=== PATIENT | male | born 1960 | race Caucasian/White ===

== ENCOUNTER 2019-01-09 00:28 | Inpatient (IN) | payer MEDICAID, OTHER | END 2019-01-10 18:45 | disposition home or self-care (01) | LOC: ER 00:28 → TELE 00:29 → TELE-WESTW 11:34 | DX: N17.0 Acute kidney failure with tubular necrosis (principal); I50.43 Acute on chronic combined systolic (congestive) and diastolic (congestive) heart failure; J18.1 Lobar pneumonia, unspecified organism; E11.21 Type 2 diabetes mellitus with diabetic nephropathy; I25.10 Atherosclerotic heart disease of native coronary artery without angina pectoris; R07.9 Chest pain, unspecified; E11.42 Type 2 diabetes mellitus with diabetic polyneuropathy ==

== ENCOUNTER 2019-04-17 17:54 | Inpatient (IN) | payer MEDICAID, OTHER ==
[~2019-04-17] VITALS: Ht 177.8 cm; Wt 93.5 kg
[~2019-04-17 17:54] MED LIST: ASPI-404 PO; CLOP75TA28 PO
[2019-04-17 21:14] LABS: Basophils # (auto) 0.1 uL; Basophils % (auto) 1.2 % (0.0-2.0); Eosinophils # (auto) 0.1 uL; Eosinophils % (auto) 3.2 % (0.0-7.0); Hematocrit 38.3 % (41.0-53.0); Hemoglobin 12.7 g/dL (13.5-17.5); Lymphocytes # (auto) 0.7 uL; Lymphocytes % (auto) 16.3 % (10.0-50.0); Mean Corpuscular Hemoglobin 28.3 pg (28.0-32.0); Mean Corpuscular Hgb Conc. 33.1 g/dL (32.0-36.0); Mean Corpuscular Volume 85.6 fL (80.0-100.0); Monocytes # (auto) 0.4 uL; Monocytes % (auto) 10.8 % (0.0-12.0); Neutrophils # (auto) 2.9 uL; Neutrophils % (auto) 68.5 % (37.0-80.0); Nucleated Red Blood Cells % 0.1 %; Platelet Count (auto) 201 10^3/uL (140-450); Red Blood Cells 4.47 10^6/uL (4.5-5.90); Red Cell Distribution Width 16.3 % (11.8-14.3); White Blood Cell 4.2 10^3/uL (4.4-10.8)
[2019-04-17 21:25] LABS: INR 1.2 (0.9-1.15); Partial Thromboplastin Time 27.7 sec (23.64-32.05)
[2019-04-17 21:26] LABS: Amylase 29 U/L (25-115); Lipase 65 U/L (73-393)
[2019-04-17 21:28] LABS: Albumin 3.1 g/dL (3.4-5.0); BUN/Creatinine Ratio 11.7; Calcium 8.2 mg/dL (8.5-10.1); Potassium 4.3 mmol/L (3.5-5.1)
[2019-04-17 21:31] LABS: Total Protein 7.6 g/dL (6.4-8.2)
[2019-04-17] MEDS ORDERED: ONDANSETRON HCL 4 MG/2 ML VIAL IV ONE (22:30)
[2019-04-17] MEDS ORDERED: MORPHINE SULFATE 4 MG/ML SYR/VIAL IV ONE (22:30)
[2019-04-18] VITALS (8 sets, daily range): BP systolic 95–122; BP diastolic 59–84
[2019-04-18] MEDS ORDERED: FUROSEMIDE 20 MG/2 ML VIAL IV ONE (01:15)
[2019-04-18] MEDS ORDERED: AZITHROMYCIN 500MG/ 250ML 250 ML IV ONE (02:15)
[2019-04-18] MEDS ORDERED: cefTRIAXone 1GM/50ML D5W 50 ML IV ONE (02:15)
[2019-04-18] MEDS ORDERED: TEMAZEPAM 15 MG CAP PO PRN (02:45)
[2019-04-18] MEDS ORDERED: DEXTROSE (50%) 50ML SYRG IV PRN (02:45)
[2019-04-18] MEDS ORDERED: ACETAMINOPHEN 325 MG TAB PO PRN (02:45)
[2019-04-18] MEDS ORDERED: MORPHINE SULF INJ 2 MG/ML SYRINGE 1ML IV PRN (02:45)
[2019-04-18] MEDS ORDERED: NITROGLYCERIN 0.4 MG SL TAB SL PRN (02:45)
[2019-04-18] MEDS ORDERED: ALBUTEROL SULF 2.5 MG/0.5ML(0.5%) NEB SOLN NEB PRN (02:45)
--- NOTE | 2019-04-18 04:03 | NUR ---
Telemetry admit from ER [facility] admitted to Telemetry unit after NO SBAR was received. Patient oriented to KEISHA HEALY, RN primary RN, unit, room, bed, and unit policies regarding patient care and visiting hours. Patient now on continuous telemetry monitoring, tele box # 31 and telemetry reading on arrival to unit is sinus rhythm 91bpm. Patient placed on bedside oxygen 3L/min via nasal cannula, weighed by bedscale and encouraged to call if they need something. All questions and concerns addressed, patient verbalized understanding. Call light is within reach, side rails up x2, bed is in lowest position, bed alarm is on. Patient is A/O x4, skin is overall intact with closed scabs to the right and left lower extremities, 20 g IV to the LFA.
[2019-04-18] MEDS: HYDROcodone-ACET 5/325MG TAB PO PRN (04:23)
--- NOTE | 2019-04-18 04:30 | NUR ---
HOME MEDICATIONS Patient does not remember the names of the home medications he takes at home and states he can have a list of the home medications brought in today.
[2019-04-18] MEDS ORDERED: FUROSEMIDE 20 MG/2 ML VIAL IV SCH (06:00)
[2019-04-18] MEDS: ACCU-CHEK COMFORT CURVE STRIP VI SCH ×3 (06:14→17:51)
[2019-04-18] MEDS: InsuLIN REG 1unit/0.01ml Soln (100units/ml) SC SCH ×3 (06:14→18:10)
--- NOTE | 2019-04-18 07:00 | NUR ---
PT. ASSESSED FOR PRN. MN. TX., NO RESP. DISTRESS NOTED. PT. IS AWAKE AND ALERT, APPROPRIATE TO QUESTIONS. BS. ARE CLEAR AND DIMINISHED BILATERALLY. HR=44,RR=18,OC79=544% ON 3LPM NC. PT. DENIES ANY SOB. AT THIS TIME. PRN. TX. NOT INDICATED, NO TX. GIVEN. PT. INSTRUCTED TO CALL IF NEEDED.
[2019-04-18] MEDS ORDERED: ASPirin 81 mg TAB PO SCH (10:00)
[2019-04-18] MEDS: CARVEDILOL 3.125 MG TAB PO SCH ×2 (10:00→13:00)
[2019-04-18 10:12] LABS: Urine Bacteria NONE SEEN /hpf (None Seen); Urine Blood Negative /uL (Negative); Urine Hyaline Cast MANY /lpf (0 - 2); Urine Specific Gravity 1.013 (1.001-1.035); Urine WBC 1 /hpf (0 - 3)
[2019-04-18] MEDS: CLOPIDOGREL BISULFATE 75 MG TAB PO SCH (10:26)
--- NOTE | 2019-04-18 10:26 | NUR ---
Dr. Avila logging contractor at the bedside, orders received.
[2019-04-18] MEDS: FUROSEMIDE 20 MG/2 ML VIAL IV SCH ×2 (11:10→17:49)
--- NOTE | 2019-04-18 15:29 | NUR ---
Dr. Cameron shadowgraph operator at the bedside, orders received.
--- NOTE | 2019-04-18 16:46 | NUR ---
Faxed disclosure of all cardiology reports requested by Dr. Cameron to [facility] Medical Records section fax # [phone]. Waiting for reply.
--- NOTE | 2019-04-18 19:20 | NUR ---
Opening Shift Note Assumed care of patient, awake and alert x4. No S/S of distress/SOB or pain. Call light is within reach, side rails up x2. bed is in lowest position. Instructed on POC and to call for assist PRN, will continue to monitor for changes Q1hr and PRN.
--- NOTE | 2019-04-18 19:46 | NUR ---
RT NOTE: PT ASSESSED FOR PRN MED NEB TX, P[T DENIES SOB AT THIS TIME. PT ON 3LPM NC SPO2 99% HR 56, RR 18. NO DISTRESS NOTED AT THIS TIME. PT NOTIFIED IF SOB OCCURS TO HAVE RT PAGED.
[2019-04-18] MEDS: ATORVASTATIN 20 MG TAB PO SCH (22:13)
[2019-04-18] MEDS: CARVEDILOL 12.5 MG TAB PO SCH (22:15)
[2019-04-18] MEDS: AZITHROMYCIN 500MG/ 250ML 250 ML IV SCH (23:38)
[2019-04-19] MEDS: InsuLIN REG 1unit/0.01ml Soln (100units/ml) SC SCH ×5 (00:02→18:02)
[2019-04-19] MEDS: ACCU-CHEK COMFORT CURVE STRIP VI SCH ×4 (00:03→18:00)
[2019-04-19] MEDS: cefTRIAXone 1GM/50ML D5W 50 ML IV SCH (02:06)
[2019-04-19 05:00] VITALS: BP 102/47
--- NOTE | 2019-04-19 05:15 | NUR ---
Patient ambulated to the restroom with assistance by student regulatory scientist, patient voiced feeling light headed and nauseated when he returned to the bed. BP immediately assessed it was 114/55 mmHg and O2 saturation 98% on oxygen 3 L/min via nasal cannula. Zofran given as ordered for nausea. After laying in bed for a few minutes, patient stated he felt better. Instructed patient to stay in bed, urinal provided, call light and urinal within reach, bed alarm is on. Will continue to monitor and round hourly and as needed.
[2019-04-19] MEDS: ONDANSETRON HCL 4 MG/2 ML VIAL IV PRN (05:18)
[2019-04-19 05:39] LABS: Basophils # (auto) 0 uL; Basophils % (auto) 0.8 % (0.0-2.0); Eosinophils # (auto) 0.3 uL; Eosinophils % (auto) 6.8 % (0.0-7.0); Hematocrit 34.9 % (41.0-53.0); Hemoglobin 11.7 g/dL (13.5-17.5); Lymphocytes # (auto) 0.8 uL; Lymphocytes % (auto) 16.9 % (10.0-50.0); Mean Corpuscular Hemoglobin 28.5 pg (28.0-32.0); Mean Corpuscular Hgb Conc. 33.5 g/dL (32.0-36.0); Mean Corpuscular Volume 85.2 fL (80.0-100.0); Monocytes # (auto) 0.6 uL; Monocytes % (auto) 12.4 % (0.0-12.0); Neutrophils # (auto) 2.9 uL; Neutrophils % (auto) 63.1 % (37.0-80.0); Nucleated Red Blood Cells % 0.1 %; Platelet Count (auto) 182 10^3/uL (140-450); Red Cell Distribution Width 16.7 % (11.8-14.3); White Blood Cell 4.5 10^3/uL (4.4-10.8)
[2019-04-19] MEDS: HYDROcodone-ACET 5/325MG TAB PO PRN (05:58)
[2019-04-19] MEDS: FUROSEMIDE 20 MG/2 ML VIAL IV SCH ×3 (05:58→18:21)
[2019-04-19 06:13] LABS: BUN/Creatinine Ratio 15.2; Calcium 8.2 mg/dL (8.5-10.1); Magnesium 2.4 mg/dL (1.6-2.6); Potassium 3.5 mmol/L (3.5-5.1)
[2019-04-19 09:00] VITALS: BP 104/57
[2019-04-19] MEDS: ASPirin 81 mg TAB PO SCH (10:39)
[2019-04-19] MEDS: CLOPIDOGREL BISULFATE 75 MG TAB PO SCH (10:40)
[2019-04-19] MEDS: CARVEDILOL 12.5 MG TAB PO SCH ×2 (10:40→22:06)
[2019-04-19 13:00] VITALS: BP 119/90
[2019-04-19 17:00] VITALS: BP 111/73
--- NOTE | 2019-04-19 19:00 | NUR ---
Opening Shift Note Assumed care of patient, awake and alert. No S/S of distress/SOB or pain. Instructed on POC and to call for assist PRN, will continue to monitor for changes Q1hr and PRN.
[2019-04-19 21:49] VITALS: BP 124/74
[2019-04-19] MEDS: ATORVASTATIN 20 MG TAB PO SCH (22:05)
--- NOTE | 2019-04-19 22:17 | NUR ---
Respiratory note: ASSESSED PT FOR PRN MED NEB AT THIS TIME, PT SLEEPING AT THIS TIME, NO RESP DISTRESS NOTED, NO TX INDICATED. PULSE OX 100% ON 3 NC, HR 64, RR 20, BILATERAL BS CLEAR.
[2019-04-20] MEDS: AZITHROMYCIN 500MG/ 250ML 250 ML IV SCH ×2 (00:22→23:49)
[2019-04-20] MEDS: cefTRIAXone 1GM/50ML D5W 50 ML IV SCH (02:19)
[2019-04-20] MEDS: ONDANSETRON HCL 4 MG/2 ML VIAL IV PRN (02:57)
[2019-04-20 04:39] VITALS: BP 93/53
[2019-04-20] MEDS: ACCU-CHEK COMFORT CURVE STRIP VI SCH ×5 (06:00→23:49)
[2019-04-20] MEDS: InsuLIN REG 1unit/0.01ml Soln (100units/ml) SC SCH ×5 (06:00→23:49)
--- NOTE | 2019-04-20 06:40 | NUR ---
RT NOTE: WENT TO PTS ROOM TO ASSESS FOR PRN BREATHING TX, NO S/S OF SOB. HR 71, RR 16, SPO2 100% ON 4L NC, BREATH SOUNDS CLEAR. NO INDICATION FOR TX, WILL CONTINUE TO MONITOR PT.
[2019-04-20] MEDS: FUROSEMIDE 20 MG/2 ML VIAL IV SCH ×2 (06:51→17:53)
[2019-04-20 06:58] LABS: Basophils # (auto) 0.1 uL; Basophils % (auto) 0.8 % (0.0-2.0); Eosinophils # (auto) 0.3 uL; Eosinophils % (auto) 5.3 % (0.0-7.0); Hematocrit 35.8 % (41.0-53.0); Lymphocytes # (auto) 0.8 uL; Lymphocytes % (auto) 13.3 % (10.0-50.0); Mean Corpuscular Hemoglobin 28.6 pg (28.0-32.0); Mean Corpuscular Hgb Conc. 33.6 g/dL (32.0-36.0); Monocytes # (auto) 0.5 uL; Neutrophils # (auto) 4.4 uL; Neutrophils % (auto) 71.6 % (37.0-80.0); Platelet Count (auto) 189 10^3/uL (140-450); Red Blood Cells 4.21 10^6/uL (4.5-5.90); Red Cell Distribution Width 16.5 % (11.8-14.3); White Blood Cell 6.1 10^3/uL (4.4-10.8)
[2019-04-20 07:16] LABS: Calcium 7.9 mg/dL (8.5-10.1); Potassium 3.7 mmol/L (3.5-5.1)
[2019-04-20 07:18] LABS: BUN/Creatinine Ratio 15.4
--- NOTE | 2019-04-20 08:00 | NUR ---
PATIENT REFUSED STROUD CATHETER
[2019-04-20 09:00] VITALS: BP 119/59
[2019-04-20] MEDS: CLOPIDOGREL BISULFATE 75 MG TAB PO SCH (10:14)
[2019-04-20] MEDS: ASPirin 81 mg TAB PO SCH (10:14)
[2019-04-20] MEDS: CARVEDILOL 12.5 MG TAB PO SCH ×2 (10:24→21:53)
[2019-04-20 13:00] VITALS: BP 112/76
[2019-04-20 17:00] VITALS: BP 111/67
--- NOTE | 2019-04-20 19:12 | NUR ---
Respiratory note: ASSESSED PT FOR PRN MED NEB AT THIS TIME, PT DENIES SOB AT THIS TIME, NO RESP DISTRESS NOTED, NO TX INDICATED. PULSE OX 93% ON 2LNC, HR 69, RR 18, BILATERAL BS CLEAR DECREASED.
[2019-04-20 19:57] VITALS: BP 111/67
--- NOTE | 2019-04-20 20:00 | NUR ---
RECEIVE IN BED WITH VISITOR AT BEDSIDE REFUSE STROUD AT THIS TIME
[2019-04-20 21:43] VITALS: BP 126/79
[2019-04-20] MEDS: ATORVASTATIN 20 MG TAB PO SCH (21:53)
[2019-04-21] MEDS: cefTRIAXone 1GM/50ML D5W 50 ML IV SCH (01:57)
[2019-04-21 04:35] VITALS: BP 115/66
[2019-04-21 05:03] LABS: Basophils # (auto) 0.1 uL; Basophils % (auto) 0.8 % (0.0-2.0); Eosinophils # (auto) 0.3 uL; Hematocrit 37.4 % (41.0-53.0); Hemoglobin 12.5 g/dL (13.5-17.5); Lymphocytes % (auto) 13.9 % (10.0-50.0); Mean Corpuscular Hemoglobin 28.6 pg (28.0-32.0); Mean Corpuscular Hgb Conc. 33.5 g/dL (32.0-36.0); Mean Corpuscular Volume 85.2 fL (80.0-100.0); Monocytes # (auto) 0.8 uL; Monocytes % (auto) 11.1 % (0.0-12.0); Neutrophils # (auto) 4.9 uL; Neutrophils % (auto) 70.2 % (37.0-80.0); Platelet Count (auto) 202 10^3/uL (140-450); Red Blood Cells 4.39 10^6/uL (4.5-5.90); Red Cell Distribution Width 16.3 % (11.8-14.3)
[2019-04-21 05:23] LABS: BUN/Creatinine Ratio 14.6; Calcium 8.4 mg/dL (8.5-10.1); Potassium 4.2 mmol/L (3.5-5.1)
[2019-04-21] MEDS: FUROSEMIDE 20 MG/2 ML VIAL IV SCH (05:58)
[2019-04-21] MEDS: ACCU-CHEK COMFORT CURVE STRIP VI SCH ×2 (05:58→12:18)
[2019-04-21] MEDS: InsuLIN REG 1unit/0.01ml Soln (100units/ml) SC SCH ×2 (05:59→12:18)
[2019-04-21 10:03] VITALS: BP 114/68
[2019-04-21] MEDS: ASPirin 81 mg TAB PO SCH (10:24)
[2019-04-21] MEDS: CLOPIDOGREL BISULFATE 75 MG TAB PO SCH (10:25)
[2019-04-21] MEDS: CARVEDILOL 12.5 MG TAB PO SCH (10:25)
[2019-04-21] MEDS ORDERED: FURO1TAB31 PO (11:22)
[2019-04-21] MEDS ORDERED: CAR125T PO (11:22)
[2019-04-21] MEDS ORDERED: ASPI81CH43 PO (11:22)
[2019-04-21] MEDS ORDERED: CLOP75TA28 PO (11:22)
[2019-04-21] MEDS ORDERED: ATOR20TA PO (11:31)
[2019-04-21] MEDS ORDERED: ALBUAER3 IN (11:32)
[2019-04-21] MEDS ORDERED: INSUINJ37 SC (11:37)
[2019-04-21 13:05] VITALS: BP 114/69
[2019-04-21 14:12] VITALS: BP 114/69
[2019-04-21 14:18] VITALS: BP 114/69
--- NOTE | 2019-04-21 15:43 | NUR ---
Discharge instructions given as ordered. Encourage to follow up with PMD as instructed. All questions and concerns addressed. Patient verbalized understanding. Medication reconciliation form completed and copy given to patient. IV removed with catheter intact, pressure dressing applied . Telemetry unit returned to ICU. Patient taken to vehicle via wheelchair with all personal belongings, accompanied by staff and family member. No distress noted at time of departure.
[2019-04-21] MEDS ORDERED: LEVO250T19 PO ×2 (16:39→16:45)
== END 2019-04-21 16:20 | disposition home or self-care (01) | DRG 194 ==
LOC: EDBD 17:54 → EDUNIT# 17:54 → ER 17:58 → TELE 17:59 → TELE-CENTR 04-18 04:04
PROVIDERS: ADMIT Nurse Practitioner; ATTEND Internal Medicine
DX: I13.2 Hypertensive heart and chronic kidney disease with heart failure and with stage 5 chronic kidney disease, or end stage renal disease (principal); N17.0 Acute kidney failure with tubular necrosis; J96.00 Acute respiratory failure, unspecified whether with hypoxia or hypercapnia; E43 Unspecified severe protein-calorie malnutrition; J18.9 Pneumonia, unspecified organism; E11.21 Type 2 diabetes mellitus with diabetic nephropathy; N18.6 End stage renal disease; E11.22 Type 2 diabetes mellitus with diabetic chronic kidney disease; E87.1 Hypo-osmolality and hyponatremia; R55 Syncope and collapse; D63.8 Anemia in other chronic diseases classified elsewhere; E78.5 Hyperlipidemia, unspecified; I25.10 Atherosclerotic heart disease of native coronary artery without angina pectoris; I50.43 Acute on chronic combined systolic (congestive) and diastolic (congestive) heart failure; Z79.82 Long term (current) use of aspirin; Z82.49 Family history of ischemic heart disease and other diseases of the circulatory system; Z82.5 Family history of asthma and other chronic lower respiratory diseases; Z68.29 Body mass index [BMI] 29.0-29.9, adult; I25.2 Old myocardial infarction; Z83.3 Family history of diabetes mellitus; Z85.038 Personal history of other malignant neoplasm of large intestine; Z86.73 Personal history of transient ischemic attack (TIA), and cerebral infarction without residual deficits; Z91.19 Patient's noncompliance with other medical treatment and regimen; Z87.891 Personal history of nicotine dependence; Z95.5 Presence of coronary angioplasty implant and graft
CPT/HCPCS: 36415; 70450; 71045; 76775; 80048; 80053; 80061; 81001; 82150; 82962; 83036; 83605; 83690; 83735; 83880; 84443; 84484; 85025; 85610; 85730; 87040; 87804; 93005; 93886; 96365; 96368; 96375; G0378; J0696; J1815; J2405

== ENCOUNTER 2019-10-01 22:56 | Inpatient (IN) | payer OTHER ==
[~2019-10-01] VITALS: Ht 170.2 cm; Wt 97.2 kg
[~2019-10-01 22:56] MED LIST changes: +ALBUAER3 IN; +ATOR20TA PO; +CAR125T PO; +FURO1TAB31 PO
[2019-10-01 23:35] LABS: Basophils # (auto) 0.1 10 ^3/uL (0-0.2); Basophils % (auto) 0.8 % (0.0-2.0); Eosinophils # (auto) 0.2 10 ^3/uL (0-0.8); Eosinophils % (auto) 1.8 % (0.0-7.0); Hematocrit 39.2 % (41.0-53.0); Lymphocytes # (auto) 0.7 10 ^3/uL (0.4-5.4); Lymphocytes % (auto) 6.4 % (10.0-50.0); Mean Corpuscular Hemoglobin 29.1 pg (28.0-32.0); Mean Corpuscular Hgb Conc. 33.1 g/dL (32.0-36.0); Mean Corpuscular Volume 87.8 fL (80.0-100.0); Monocytes # (auto) 0.9 10 ^3/uL (0-1.3); Monocytes % (auto) 8.2 % (0.0-12.0); Neutrophils # (auto) 8.6 10 ^3/uL (1.6-8.6); Neutrophils % (auto) 82.8 % (37.0-80.0); Platelet Count (auto) 319 10^3/uL (140-450); Red Blood Cells 4.46 10^6/uL (4.5-5.90); Red Cell Distribution Width 16.9 % (11.8-14.3); White Blood Cell 10.3 10^3/uL (4.4-10.8)
[2019-10-01 23:50] LABS: BUN/Creatinine Ratio 18.2; Potassium 4.3 mmol/L (3.5-5.1)
[2019-10-01 23:53] LABS: Bilirubin, Total 1.2 mg/dL (0.2-1.0); Total Protein 7.8 g/dL (6.4-8.2)
[2019-10-02] MEDS ORDERED: FUROSEMIDE 20 MG/2 ML VIAL IV ONE ×2 (00:15→01:30)
[2019-10-02] MEDS ORDERED: PROMETHAZINE HCL 25 MG/ML 1ML IV ONE (00:30)
[2019-10-02] MEDS ORDERED: MORPHINE SULFATE 4 MG/ML SYR/VIAL IV ONE (00:30)
[2019-10-02 02:06] LABS: Urine Bacteria FEW /hpf (None Seen); Urine Blood TRACE /uL (Negative); Urine Hyaline Cast MOD /lpf (0 - 2); Urine Specific Gravity 1.011 (1.001-1.035); Urine WBC <1 /hpf (0 - 3)
[2019-10-02] MEDS ORDERED: ACETAMINOPHEN 325 MG TAB PO PRN (02:45)
[2019-10-02] MEDS ORDERED: TEMAZEPAM 15 MG CAP PO PRN (02:45)
[2019-10-02] MEDS ORDERED: DEXTROSE (50%) 50ML SYRG IV PRN (02:45)
[2019-10-02] MEDS ORDERED: NITROGLYCERIN 0.4 MG SL TAB SL PRN (03:00)
[2019-10-02] MEDS ORDERED: MORPHINE SULF INJ 2 MG/ML SYRINGE 1ML IV PRN (03:00)
[2019-10-02] MEDS ORDERED: LABETALOL HCL 5 MG/ML 4ML SYRINGE IV PRN (03:15)
[2019-10-02] MEDS ORDERED: FUROSEMIDE 40 MG/4 ML VIAL IV SCH (06:00)
[2019-10-02] MEDS: ACCU-CHEK COMFORT CURVE STRIP VI SCH ×4 (06:32→23:39)
[2019-10-02] MEDS: InsuLIN REG 1unit/0.01ml Soln (100units/ml) SC SCH ×4 (06:55→23:38)
[2019-10-02] MEDS: FUROSEMIDE 100 MG/10ML VIAL IV SCH ×2 (07:08→17:55)
[2019-10-02 08:49] VITALS: BP 145/67
[2019-10-02 09:02] VITALS: BP 145/67
[2019-10-02] MEDS: PANTOPRAZOLE 40 MG TAB PO SCH (09:43)
[2019-10-02] MEDS: ASPirin 81 mg TAB PO SCH (09:43)
[2019-10-02] MEDS: CLOPIDOGREL BISULFATE 75 MG TAB PO SCH (09:43)
[2019-10-02] MEDS: CARVEDILOL 12.5 MG TAB PO SCH ×2 (09:43→21:23)
[2019-10-02] MEDS: HYDROcodone-ACET 5/325MG TAB PO PRN (11:56)
[2019-10-02 12:33] VITALS: BP 137/57
[2019-10-02 16:36] VITALS: BP 112/71
[2019-10-02] MEDS ORDERED: POTA10TA79 PO (17:17)
[2019-10-02] MEDS ORDERED: GLIP5TAB12 PO (17:17)
[2019-10-02] MEDS ORDERED: ASPI-404 PO (17:20)
[2019-10-02] MEDS: SACUBITRIL-VALSARTAN 24mg/26mg TAB PO SCH (21:24)
[2019-10-02] MEDS: ATORVASTATIN 20 MG TAB PO SCH (21:24)
[2019-10-02 21:30] VITALS: BP 114/68
[2019-10-03 05:35] VITALS: BP 109/69
[2019-10-03 05:35] LABS: Basophils # (auto) 0.1 10 ^3/uL (0-0.2); Basophils % (auto) 1.1 % (0.0-2.0); Eosinophils # (auto) 0.6 10 ^3/uL (0-0.8); Eosinophils % (auto) 6.3 % (0.0-7.0); Hematocrit 36.5 % (41.0-53.0); Hemoglobin 12.2 g/dL (13.5-17.5); Lymphocytes # (auto) 0.7 10 ^3/uL (0.4-5.4); Lymphocytes % (auto) 6.5 % (10.0-50.0); Mean Corpuscular Hemoglobin 29.2 pg (28.0-32.0); Mean Corpuscular Hgb Conc. 33.3 g/dL (32.0-36.0); Mean Corpuscular Volume 87.8 fL (80.0-100.0); Monocytes # (auto) 0.7 10 ^3/uL (0-1.3); Monocytes % (auto) 7.4 % (0.0-12.0); Neutrophils # (auto) 7.8 10 ^3/uL (1.6-8.6); Neutrophils % (auto) 78.7 % (37.0-80.0); Nucleated Red Blood Cells % 0.1 %; Platelet Count (auto) 267 10^3/uL (140-450); Red Blood Cells 4.16 10^6/uL (4.5-5.90); Red Cell Distribution Width 17.1 % (11.8-14.3)
[2019-10-03 05:52] LABS: Magnesium 2.9 mg/dL (1.6-2.6)
[2019-10-03 05:54] LABS: Potassium 3.7 mmol/L (3.5-5.1)
[2019-10-03] MEDS: ACCU-CHEK COMFORT CURVE STRIP VI SCH ×4 (05:58→23:56)
[2019-10-03] MEDS: FUROSEMIDE 100 MG/10ML VIAL IV SCH ×2 (05:58→18:00)
[2019-10-03] MEDS: InsuLIN REG 1unit/0.01ml Soln (100units/ml) SC SCH ×4 (05:58→23:57)
[2019-10-03 06:03] LABS: Albumin 2.6 g/dL (3.4-5.0); BUN/Creatinine Ratio 19.9; Bilirubin, Total 1.1 mg/dL (0.2-1.0); Calcium 8.3 mg/dL (8.5-10.1); Total Protein 6.6 g/dL (6.4-8.2)
[2019-10-03 08:51] VITALS: BP 107/75
[2019-10-03 09:01] LABS: Alcohol, Urine < 3.0 mg/dL (0-5); Amphetamine Screen, Urine NEGATIVE (NEGATIVE); Barbiturate Scree,Urine NEGATIVE (NEGATIVE); Benzodiazephine Screen, Urine NEGATIVE (NEGATIVE); Cannabinoid Screen, Urine NEGATIVE (NEGATIVE); Cocaine Screen, Urine NEGATIVE (NEGATIVE); Opiate Scree,Urine POSITIVE (NEGATIVE); Phencyclidine Screen, Urine NEGATIVE (NEGATIVE)
[2019-10-03] MEDS: ASPirin 81 mg TAB PO SCH (10:31)
[2019-10-03] MEDS: SACUBITRIL-VALSARTAN 24mg/26mg TAB PO SCH (10:32)
[2019-10-03] MEDS: PANTOPRAZOLE 40 MG TAB PO SCH (10:32)
[2019-10-03] MEDS: CARVEDILOL 12.5 MG TAB PO SCH ×2 (10:32→22:00)
[2019-10-03] MEDS: CLOPIDOGREL BISULFATE 75 MG TAB PO SCH (10:32)
[2019-10-03 13:00] VITALS: BP 106/64
[2019-10-03] MEDS ORDERED: guaiFENesin-DM 100/10mg/5ml SYR PO PRN (13:15)
[2019-10-03] MEDS ORDERED: AZITHROMYCIN 250 MG TAB PO ONE (13:15)
[2019-10-03] MEDS ORDERED: cefTRIAXone 1GM/50ML D5W 50 ML IV ONE (13:15)
[2019-10-03] MEDS ORDERED: ALBUMIN 25% 100 ML IV ONE (15:45)
[2019-10-03 16:19] VITALS: BP 102/60
[2019-10-03] MEDS: DOPamine 1600MCG/ML D5W 250 ML IV SCH (17:05)
[2019-10-03] MEDS: ATORVASTATIN 20 MG TAB PO SCH (21:11)
[2019-10-03] MEDS: ONDANSETRON HCL 4 MG/2 ML VIAL IV PRN (21:57)
[2019-10-03 22:00] VITALS: BP 97/54
[2019-10-04 05:00] VITALS: BP 123/68
[2019-10-04] MEDS: ACCU-CHEK COMFORT CURVE STRIP VI SCH ×3 (05:37→17:40)
[2019-10-04] MEDS: ONDANSETRON HCL 4 MG/2 ML VIAL IV PRN ×3 (05:37→20:44)
[2019-10-04] MEDS: FUROSEMIDE 100 MG/10ML VIAL IV SCH ×2 (05:37→17:58)
[2019-10-04 05:43] LABS: BUN/Creatinine Ratio 20.6; Calcium 8.1 mg/dL (8.5-10.1); Potassium 3.4 mmol/L (3.5-5.1)
[2019-10-04] MEDS: InsuLIN REG 1unit/0.01ml Soln (100units/ml) SC SCH ×3 (05:44→17:57)
[2019-10-04 08:55] VITALS: BP 106/68
[2019-10-04] MEDS: PANTOPRAZOLE 40 MG TAB PO SCH (10:05)
[2019-10-04] MEDS: ASPirin 81 mg TAB PO SCH (10:05)
[2019-10-04] MEDS: cefTRIAXone 1GM/50ML D5W 50 ML IV SCH (10:05)
[2019-10-04] MEDS: AZITHROMYCIN 250 MG TAB PO SCH (10:06)
[2019-10-04] MEDS: CLOPIDOGREL BISULFATE 75 MG TAB PO SCH (10:06)
[2019-10-04] MEDS: CARVEDILOL 12.5 MG TAB PO SCH ×2 (10:06→22:00)
[2019-10-04 13:00] VITALS: BP 103/53
[2019-10-04] MEDS: ALBUMIN 25% 50 ML IV SCH ×2 (14:36→21:09)
[2019-10-04] MEDS: DOPamine 1600MCG/ML D5W 250 ML IV SCH (16:15)
[2019-10-04] MEDS ORDERED: POTASSIUM CHL 20 Meq TABLET PO ONE (16:15)
[2019-10-04 17:00] VITALS: BP 108/48
[2019-10-04 20:10] VITALS: BP 97/50
[2019-10-04 22:00] VITALS: BP 97/50
[2019-10-04] MEDS: ATORVASTATIN 20 MG TAB PO SCH (22:16)
[2019-10-05] VITALS (7 sets, daily range): BP systolic 118–133; BP diastolic 51–79
[2019-10-05] MEDS: ACCU-CHEK COMFORT CURVE STRIP VI SCH ×5 (00:58→23:40)
[2019-10-05] MEDS: InsuLIN REG 1unit/0.01ml Soln (100units/ml) SC SCH ×5 (01:07→23:41)
[2019-10-05] MEDS: ALBUMIN 25% 50 ML IV SCH (04:59)
[2019-10-05] MEDS: ONDANSETRON HCL 4 MG/2 ML VIAL IV PRN ×3 (05:10→21:01)
[2019-10-05 06:43] LABS: Calcium 8.5 mg/dL (8.5-10.1); Potassium 4.3 mmol/L (3.5-5.1)
[2019-10-05] MEDS: FUROSEMIDE 100 MG/10ML VIAL IV SCH ×2 (06:43→17:49)
[2019-10-05 06:50] LABS: BUN/Creatinine Ratio 18.4
[2019-10-05] MEDS: cefTRIAXone 1GM/50ML D5W 50 ML IV SCH (09:19)
[2019-10-05] MEDS: AZITHROMYCIN 250 MG TAB PO SCH (09:21)
[2019-10-05] MEDS: HYDROcodone-ACET 5/325MG TAB PO PRN (09:21)
[2019-10-05] MEDS: PANTOPRAZOLE 40 MG TAB PO SCH (09:21)
[2019-10-05] MEDS: CLOPIDOGREL BISULFATE 75 MG TAB PO SCH (09:21)
[2019-10-05] MEDS: CARVEDILOL 12.5 MG TAB PO SCH (09:21)
[2019-10-05] MEDS: ASPirin 81 mg TAB PO SCH (09:21)
[2019-10-05] MEDS: DOPamine 1600MCG/ML D5W 250 ML IV SCH (16:48)
[2019-10-05] MEDS: CARVEDILOL 3.125 MG TAB PO SCH (17:04)
[2019-10-05] MEDS: ATORVASTATIN 20 MG TAB PO SCH (22:11)
[2019-10-05] MEDS: ALBUTEROL SULF 2.5 MG/0.5ML(0.5%) NEB SOLN NEB PRN (23:03)
[2019-10-06] MEDS: ONDANSETRON HCL 4 MG/2 ML VIAL IV PRN (04:16)
[2019-10-06 06:00] VITALS: BP 146/86
[2019-10-06] MEDS: InsuLIN REG 1unit/0.01ml Soln (100units/ml) SC SCH ×3 (06:00→18:47)
[2019-10-06] MEDS: FUROSEMIDE 100 MG/10ML VIAL IV SCH (06:11)
[2019-10-06] MEDS: ACCU-CHEK COMFORT CURVE STRIP VI SCH ×3 (06:11→18:46)
[2019-10-06 06:37] LABS: Basophils # (auto) 0.1 10 ^3/uL (0-0.2); Basophils % (auto) 0.6 % (0.0-2.0); Eosinophils # (auto) 0.8 10 ^3/uL (0-0.8); Eosinophils % (auto) 6.4 % (0.0-7.0); Hematocrit 39.6 % (41.0-53.0); Hemoglobin 13.2 g/dL (13.5-17.5); Lymphocytes # (auto) 0.4 10 ^3/uL (0.4-5.4); Lymphocytes % (auto) 3.1 % (10.0-50.0); Mean Corpuscular Hgb Conc. 33.3 g/dL (32.0-36.0); Mean Corpuscular Volume 87.2 fL (80.0-100.0); Monocytes # (auto) 0.8 10 ^3/uL (0-1.3); Monocytes % (auto) 6.6 % (0.0-12.0); Neutrophils # (auto) 10.2 10 ^3/uL (1.6-8.6); Neutrophils % (auto) 83.3 % (37.0-80.0); Platelet Count (auto) 314 10^3/uL (140-450); Red Blood Cells 4.54 10^6/uL (4.5-5.90); Red Cell Distribution Width 16.7 % (11.8-14.3); White Blood Cell 12.2 10^3/uL (4.4-10.8)
[2019-10-06 06:50] LABS: BUN/Creatinine Ratio 18.6; Calcium 9.1 mg/dL (8.5-10.1); Potassium 4.1 mmol/L (3.5-5.1)
[2019-10-06] MEDS: cefTRIAXone 1GM/50ML D5W 50 ML IV SCH (08:30)
[2019-10-06] MEDS: CARVEDILOL 3.125 MG TAB PO SCH ×2 (08:30→18:45)
[2019-10-06 09:00] VITALS: BP 171/76
[2019-10-06] MEDS: CLOPIDOGREL BISULFATE 75 MG TAB PO SCH (09:48)
[2019-10-06] MEDS: AZITHROMYCIN 250 MG TAB PO SCH (09:48)
[2019-10-06] MEDS: PANTOPRAZOLE 40 MG TAB PO SCH (09:48)
[2019-10-06] MEDS ORDERED: ALBUMIN 25% 100 ML IV ONE (11:30)
[2019-10-06 13:00] VITALS: BP 137/71
[2019-10-06 14:05] LABS: Urine Bacteria FEW /hpf (None Seen); Urine Blood 3+ /uL (Negative); Urine Hyaline Cast FEW /lpf (0 - 2); Urine Mucus FEW (None Seen); Urine Specific Gravity 1.011 (1.001-1.035); Urine WBC 42 /hpf (0 - 3)
[2019-10-06] MEDS: DOPamine 1600MCG/ML D5W 250 ML IV SCH (16:19)
[2019-10-06 16:52] VITALS: BP 137/75
[2019-10-06] MEDS: ALBUTEROL SULF 2.5 MG/0.5ML(0.5%) NEB SOLN NEB PRN (18:58)
[2019-10-06 22:21] VITALS: BP 115/63
[2019-10-06] MEDS: ATORVASTATIN 20 MG TAB PO SCH (22:25)
[2019-10-07] MEDS: ONDANSETRON HCL 4 MG/2 ML VIAL IV PRN
[2019-10-07] MEDS: InsuLIN REG 1unit/0.01ml Soln (100units/ml) SC SCH ×4 (00:22→17:28)
[2019-10-07] MEDS: ACCU-CHEK COMFORT CURVE STRIP VI SCH ×4 (00:22→17:29)
[2019-10-07 05:15] VITALS: BP 150/64
[2019-10-07 06:19] LABS: Basophils # (auto) 0.1 10 ^3/uL (0-0.2); Basophils % (auto) 0.6 % (0.0-2.0); Eosinophils # (auto) 0.6 10 ^3/uL (0-0.8); Eosinophils % (auto) 6.5 % (0.0-7.0); Hematocrit 35.6 % (41.0-53.0); Lymphocytes # (auto) 0.5 10 ^3/uL (0.4-5.4); Lymphocytes % (auto) 4.8 % (10.0-50.0); Mean Corpuscular Hemoglobin 29.4 pg (28.0-32.0); Mean Corpuscular Hgb Conc. 33.7 g/dL (32.0-36.0); Mean Corpuscular Volume 87.1 fL (80.0-100.0); Monocytes # (auto) 0.7 10 ^3/uL (0-1.3); Monocytes % (auto) 7.3 % (0.0-12.0); Neutrophils # (auto) 7.9 10 ^3/uL (1.6-8.6); Neutrophils % (auto) 80.8 % (37.0-80.0); Nucleated Red Blood Cells % 0.1 %; Platelet Count (auto) 284 10^3/uL (140-450); Red Blood Cells 4.08 10^6/uL (4.5-5.90); Red Cell Distribution Width 16.9 % (11.8-14.3); White Blood Cell 9.7 10^3/uL (4.4-10.8)
[2019-10-07 06:35] LABS: Calcium 8.6 mg/dL (8.5-10.1); Potassium 4.3 mmol/L (3.5-5.1)
[2019-10-07 06:38] LABS: BUN/Creatinine Ratio 18.5
[2019-10-07] MEDS: CARVEDILOL 3.125 MG TAB PO SCH ×2 (08:18→17:30)
[2019-10-07] MEDS: cefTRIAXone 1GM/50ML D5W 50 ML IV SCH (08:18)
[2019-10-07 09:00] VITALS: BP 128/86
[2019-10-07] MEDS: PANTOPRAZOLE 40 MG TAB PO SCH (09:50)
[2019-10-07] MEDS: AZITHROMYCIN 250 MG TAB PO SCH (09:51)
[2019-10-07] MEDS: FUROSEMIDE 100 MG/10ML VIAL IV SCH (09:51)
[2019-10-07 11:47] LABS: Bilirubin, Direct 0.4 mg/dL (0-0.2)
[2019-10-07 12:04] LABS: INR 1.29 (0.9-1.15)
[2019-10-07 12:05] LABS: % Iron Saturation 14.1 % (20-55)
[2019-10-07 13:00] VITALS: BP 138/60
[2019-10-07 17:00] VITALS: BP 110/63
[2019-10-07] MEDS: DOPamine 1600MCG/ML D5W 250 ML IV SCH (17:00)
[2019-10-07 22:05] VITALS: BP 117/59
[2019-10-07] MEDS: ATORVASTATIN 20 MG TAB PO SCH (22:34)
[2019-10-08] MEDS: ALBUTEROL SULF 2.5 MG/0.5ML(0.5%) NEB SOLN NEB PRN (03:42)
[2019-10-08 05:30] VITALS: BP 130/55
[2019-10-08] MEDS: ACCU-CHEK COMFORT CURVE STRIP VI SCH ×4 (06:00→22:00)
[2019-10-08] MEDS: InsuLIN REG 1unit/0.01ml Soln (100units/ml) SC SCH ×4 (06:00→22:54)
[2019-10-08] MEDS ORDERED: SODIUM CHL 0.9% 1000 ML BAG XX ONE (07:00)
[2019-10-08 07:31] LABS: Basophils # (auto) 0.1 10 ^3/uL (0-0.2); Basophils % (auto) 1.1 % (0.0-2.0); Eosinophils # (auto) 0.7 10 ^3/uL (0-0.8); Eosinophils % (auto) 8.8 % (0.0-7.0); Hematocrit 32.6 % (41.0-53.0); Hemoglobin 11.1 g/dL (13.5-17.5); Lymphocytes # (auto) 0.6 10 ^3/uL (0.4-5.4); Lymphocytes % (auto) 7.7 % (10.0-50.0); Mean Corpuscular Hemoglobin 29.8 pg (28.0-32.0); Mean Corpuscular Volume 87.7 fL (80.0-100.0); Monocytes # (auto) 0.9 10 ^3/uL (0-1.3); Monocytes % (auto) 10.7 % (0.0-12.0); Neutrophils # (auto) 5.8 10 ^3/uL (1.6-8.6); Neutrophils % (auto) 71.7 % (37.0-80.0); Nucleated Red Blood Cells % 0.1 %; Platelet Count (auto) 313 10^3/uL (140-450); Red Blood Cells 3.72 10^6/uL (4.5-5.90); Red Cell Distribution Width 17.1 % (11.8-14.3); White Blood Cell 8.1 10^3/uL (4.4-10.8)
[2019-10-08 07:50] LABS: BUN/Creatinine Ratio 19.5; Calcium 8.4 mg/dL (8.5-10.1); Potassium 4.3 mmol/L (3.5-5.1)
[2019-10-08] MEDS: CARVEDILOL 3.125 MG TAB PO SCH ×2 (08:44→18:00)
[2019-10-08 09:00] VITALS: BP_SYST 113; BP_SYST 121; BP_DIAS 63; BP_DIAS 70
[2019-10-08] MEDS: cefTRIAXone 1GM/50ML D5W 50 ML IV SCH (09:00)
[2019-10-08] MEDS: PANTOPRAZOLE 40 MG TAB PO SCH (10:00)
[2019-10-08] MEDS: FUROSEMIDE 100 MG/10ML VIAL IV SCH (10:00)
[2019-10-08] MEDS: AZITHROMYCIN 250 MG TAB PO SCH (10:32)
[2019-10-08] MEDS ORDERED: DEXTROSE (50%) 50ML SYRG IV PRN (12:30)
[2019-10-08] MEDS ORDERED: LIDOCAINE 2%HCL (LOCAL ANESTH.) INJ 20ML MDV ONE (12:45)
[2019-10-08] MEDS ORDERED: MIDAZOLAM HCL 1MG/1ML-2 ML VIAL ONE (12:47)
[2019-10-08] MEDS ORDERED: fentaNYL CITRATE 100 MCG/2 ML VL ONE (12:47)
[2019-10-08] MEDS ORDERED: HEPARIN SODIUM (PORCINE) 5000 UNITS/ML 1ML VIAL ONE (13:07)
[2019-10-08 15:02] VITALS: BP 121/70
[2019-10-08] MEDS: ONDANSETRON HCL 4 MG/2 ML VIAL IV PRN (15:31)
[2019-10-08] MEDS: DOPamine 1600MCG/ML D5W 250 ML IV SCH (16:01)
[2019-10-08 17:00] VITALS: BP 145/80
[2019-10-08 21:42] VITALS: BP 131/86
[2019-10-08] MEDS: ATORVASTATIN 20 MG TAB PO SCH (22:42)
[2019-10-08] MEDS: HYDROcodone-ACET 5/325MG TAB PO PRN (23:15)
[2019-10-09 05:00] VITALS: BP 120/60
[2019-10-09 06:04] LABS: Hematocrit 35.1 % (41.0-53.0); Hemoglobin 11.8 g/dL (13.5-17.5)
[2019-10-09 06:16] LABS: BUN/Creatinine Ratio 16.8; Calcium 8.3 mg/dL (8.5-10.1); Potassium 4.2 mmol/L (3.5-5.1)
[2019-10-09] MEDS: ACCU-CHEK COMFORT CURVE STRIP VI SCH ×4 (06:51→22:00)
[2019-10-09] MEDS: InsuLIN REG 1unit/0.01ml Soln (100units/ml) SC SCH ×4 (06:53→23:47)
[2019-10-09] MEDS ORDERED: SODIUM CHL 0.9% 1000 ML BAG XX ONE (08:30)
[2019-10-09 08:57] VITALS: BP 133/75
[2019-10-09] MEDS: CARVEDILOL 3.125 MG TAB PO SCH ×2 (09:34→18:00)
[2019-10-09] MEDS: cefTRIAXone 1GM/50ML D5W 50 ML IV SCH (09:35)
[2019-10-09] MEDS: AZITHROMYCIN 250 MG TAB PO SCH (09:35)
[2019-10-09] MEDS: PANTOPRAZOLE 40 MG TAB PO SCH (09:35)
[2019-10-09] MEDS: FUROSEMIDE 100 MG/10ML VIAL IV SCH (09:35)
[2019-10-09 09:49] LABS: Hepatitis A Ab IgM Negative; Hepatitis B Core IgM Negative; Hepatitis B Surface Antigen Negative (Negative); Hepatitis C Antibody Negative (Negative)
[2019-10-09] MEDS: CLOPIDOGREL BISULFATE 75 MG TAB PO SCH (12:14)
[2019-10-09 13:15] VITALS: BP 115/77
[2019-10-09 16:43] VITALS: BP 116/70
[2019-10-09] MEDS: HYDROcodone-ACET 5/325MG TAB PO PRN (18:49)
[2019-10-09] MEDS ORDERED: EPOETIN ALFA 10,000 UNIT/1 ML VIAL SC ONE (21:00)
[2019-10-09 23:16] VITALS: BP 121/75
[2019-10-09] MEDS: ATORVASTATIN 20 MG TAB PO SCH (23:38)
[2019-10-10 06:42] LABS: Potassium 4.7 mmol/L (3.5-5.1)
[2019-10-10 06:53] LABS: BUN/Creatinine Ratio 12.5; Calcium 8.4 mg/dL (8.5-10.1)
[2019-10-10] MEDS: ACCU-CHEK COMFORT CURVE STRIP VI SCH ×4 (06:56→22:00)
[2019-10-10] MEDS: InsuLIN REG 1unit/0.01ml Soln (100units/ml) SC SCH ×3 (06:57→17:37)
[2019-10-10 08:00] VITALS: BP 154/71
[2019-10-10 09:00] VITALS: BP 154/71
[2019-10-10] MEDS: CARVEDILOL 3.125 MG TAB PO SCH ×2 (09:00→17:38)
[2019-10-10] MEDS: cefTRIAXone 1GM/50ML D5W 50 ML IV SCH (09:42)
[2019-10-10] MEDS: AZITHROMYCIN 250 MG TAB PO SCH (09:44)
[2019-10-10] MEDS: CLOPIDOGREL BISULFATE 75 MG TAB PO SCH (09:44)
[2019-10-10] MEDS: PANTOPRAZOLE 40 MG TAB PO SCH (09:44)
[2019-10-10] MEDS: FUROSEMIDE 100 MG/10ML VIAL IV SCH (09:44)
[2019-10-10 13:00] VITALS: BP 124/69
[2019-10-10 17:00] VITALS: BP 141/71
[2019-10-10] MEDS ORDERED: SACUBITRIL-VALSARTAN 24mg/26mg TAB PO SCH (22:00)
[2019-10-10 22:54] VITALS: BP 130/75
[2019-10-10] MEDS: ATORVASTATIN 20 MG TAB PO SCH (23:13)
[2019-10-10] MEDS: HYDROcodone-ACET 5/325MG TAB PO PRN (23:14)
[2019-10-11] MEDS: InsuLIN REG 1unit/0.01ml Soln (100units/ml) SC SCH ×5 (00:01→22:00)
[2019-10-11] MEDS: INSULIN LANTUS (GLARGINE) 1 /0.01ml (100units/ml) SC SCH ×2 (00:02→22:00)
[2019-10-11 05:10] VITALS: BP 142/72
[2019-10-11 06:58] LABS: Calcium 8.9 mg/dL (8.5-10.1)
[2019-10-11 07:02] LABS: BUN/Creatinine Ratio 12.4; Magnesium 2.6 mg/dL (1.6-2.6)
[2019-10-11] MEDS: ACCU-CHEK COMFORT CURVE STRIP VI SCH ×4 (07:03→22:00)
[2019-10-11] MEDS: CARVEDILOL 3.125 MG TAB PO SCH ×2 (08:44→18:12)
[2019-10-11 09:00] VITALS: BP 140/74
[2019-10-11 09:15] VITALS: BP 142/72
[2019-10-11] MEDS: CLOPIDOGREL BISULFATE 75 MG TAB PO SCH (10:19)
[2019-10-11] MEDS: PANTOPRAZOLE 40 MG TAB PO SCH (10:19)
[2019-10-11] MEDS: FUROSEMIDE 40 MG TAB PO SCH (10:19)
[2019-10-11 12:50] VITALS: BP 143/59
[2019-10-11 17:00] VITALS: BP 141/85
[2019-10-11 22:00] VITALS: BP 150/92
[2019-10-11] MEDS: ATORVASTATIN 20 MG TAB PO SCH (22:51)
[2019-10-12 05:00] VITALS: BP 125/74
[2019-10-12] MEDS: ACCU-CHEK COMFORT CURVE STRIP VI SCH ×3 (06:13→21:50)
[2019-10-12] MEDS: InsuLIN REG 1unit/0.01ml Soln (100units/ml) SC SCH ×4 (06:13→21:32)
[2019-10-12 07:15] LABS: BUN/Creatinine Ratio 13.9; Calcium 8.5 mg/dL (8.5-10.1)
[2019-10-12] MEDS: CARVEDILOL 3.125 MG TAB PO SCH (08:00)
[2019-10-12 09:00] VITALS: BP 122/68
[2019-10-12] MEDS: PANTOPRAZOLE 40 MG TAB PO SCH (09:51)
[2019-10-12] MEDS: FUROSEMIDE 40 MG TAB PO SCH (09:51)
[2019-10-12] MEDS: CLOPIDOGREL BISULFATE 75 MG TAB PO SCH (09:51)
[2019-10-12 13:00] VITALS: BP 124/58
[2019-10-12 17:00] VITALS: BP 135/67
[2019-10-12] MEDS: ATORVASTATIN 20 MG TAB PO SCH (21:05)
[2019-10-12] MEDS: INSULIN LANTUS (GLARGINE) 1 /0.01ml (100units/ml) SC SCH (21:33)
[2019-10-12 22:00] VITALS: BP 142/88
[2019-10-13 04:48] VITALS: BP 132/69
[2019-10-13] MEDS: ACCU-CHEK COMFORT CURVE STRIP VI SCH ×4 (06:23→21:25)
[2019-10-13] MEDS: InsuLIN REG 1unit/0.01ml Soln (100units/ml) SC SCH ×4 (06:27→21:23)
[2019-10-13 06:55] LABS: Calcium 8.9 mg/dL (8.5-10.1); Potassium 4.5 mmol/L (3.5-5.1)
[2019-10-13 06:56] LABS: BUN/Creatinine Ratio 16.1
[2019-10-13] MEDS: CARVEDILOL 3.125 MG TAB PO SCH ×2 (07:45→18:02)
[2019-10-13] MEDS: HYDROcodone-ACET 5/325MG TAB PO PRN ×2 (07:48→21:25)
[2019-10-13 09:00] VITALS: BP 132/75
[2019-10-13] MEDS: FUROSEMIDE 40 MG TAB PO SCH (09:22)
[2019-10-13] MEDS: PANTOPRAZOLE 40 MG TAB PO SCH (09:22)
[2019-10-13] MEDS: CLOPIDOGREL BISULFATE 75 MG TAB PO SCH (09:23)
[2019-10-13 13:00] VITALS: BP 118/80
[2019-10-13 17:00] VITALS: BP_SYST 118; BP_SYST 139; BP_DIAS 80; BP_DIAS 82
[2019-10-13] MEDS: ATORVASTATIN 20 MG TAB PO SCH (21:12)
[2019-10-13] MEDS: INSULIN LANTUS (GLARGINE) 1 /0.01ml (100units/ml) SC SCH (21:23)
[2019-10-13 22:00] VITALS: BP 127/84
[2019-10-14 05:00] VITALS: BP 145/75
[2019-10-14] MEDS: InsuLIN REG 1unit/0.01ml Soln (100units/ml) SC SCH ×4 (06:07→23:05)
[2019-10-14] MEDS: ACCU-CHEK COMFORT CURVE STRIP VI SCH ×4 (06:07→21:39)
[2019-10-14 07:01] LABS: Calcium 8.9 mg/dL (8.5-10.1); Potassium 5.3 mmol/L (3.5-5.1)
[2019-10-14 07:03] LABS: BUN/Creatinine Ratio 17.1; Bilirubin, Total 1.1 mg/dL (0.2-1.0); Total Protein 6.8 g/dL (6.4-8.2)
[2019-10-14] MEDS: CARVEDILOL 3.125 MG TAB PO SCH ×2 (07:39→17:44)
[2019-10-14] MEDS: CLOPIDOGREL BISULFATE 75 MG TAB PO SCH (08:44)
[2019-10-14] MEDS: FUROSEMIDE 40 MG TAB PO SCH ×2 (08:45→11:15)
[2019-10-14] MEDS: PANTOPRAZOLE 40 MG TAB PO SCH (08:45)
[2019-10-14 09:00] VITALS: BP 145/92
[2019-10-14] MEDS: ALBUTEROL SULF 2.5 MG/0.5ML(0.5%) NEB SOLN NEB PRN (11:27)
[2019-10-14 11:43] VITALS: BP 145/92
[2019-10-14] MEDS ORDERED: FUROSEMIDE 40 MG TAB PO ONE (12:00)
[2019-10-14 13:00] VITALS: BP 145/92
[2019-10-14 17:00] VITALS: BP 139/82
[2019-10-14] MEDS: ATORVASTATIN 20 MG TAB PO SCH (21:39)
[2019-10-14] MEDS: HYDROcodone-ACET 5/325MG TAB PO PRN (21:50)
[2019-10-14 22:00] VITALS: BP 141/86
[2019-10-14] MEDS: INSULIN LANTUS (GLARGINE) 1 /0.01ml (100units/ml) SC SCH (23:05)
[2019-10-15 05:00] VITALS: BP 141/71
[2019-10-15] MEDS: ACCU-CHEK COMFORT CURVE STRIP VI SCH ×4 (06:12→23:08)
[2019-10-15] MEDS: InsuLIN REG 1unit/0.01ml Soln (100units/ml) SC SCH ×4 (06:12→23:09)
[2019-10-15 06:39] LABS: Calcium 8.9 mg/dL (8.5-10.1); Potassium 4.1 mmol/L (3.5-5.1)
[2019-10-15 06:41] LABS: BUN/Creatinine Ratio 17.7
[2019-10-15] MEDS ORDERED: HEPARIN SODIUM (PORCINE) 5000 UNITS/ML 1ML VIAL IV ONE ×3 (07:00)
[2019-10-15] MEDS ORDERED: SODIUM CHL 0.9% 1000 ML BAG XX ONE (07:30)
[2019-10-15 09:00] VITALS: BP 134/84
[2019-10-15] MEDS: CLOPIDOGREL BISULFATE 75 MG TAB PO SCH (10:26)
[2019-10-15] MEDS: PANTOPRAZOLE 40 MG TAB PO SCH (10:26)
[2019-10-15] MEDS: CARVEDILOL 3.125 MG TAB PO SCH ×2 (10:27→17:52)
[2019-10-15] MEDS: FUROSEMIDE 40 MG TAB PO SCH (10:28)
[2019-10-15 13:00] VITALS: BP 136/87
[2019-10-15 17:00] VITALS: BP 122/62
[2019-10-15 22:00] VITALS: BP 130/83
[2019-10-15] MEDS: INSULIN LANTUS (GLARGINE) 1 /0.01ml (100units/ml) SC SCH (23:08)
[2019-10-15] MEDS: ATORVASTATIN 20 MG TAB PO SCH (23:09)
[2019-10-16 05:00] VITALS: BP 130/80
[2019-10-16] MEDS: ACCU-CHEK COMFORT CURVE STRIP VI SCH ×3 (06:19→17:00)
[2019-10-16] MEDS: InsuLIN REG 1unit/0.01ml Soln (100units/ml) SC SCH ×3 (06:20→17:00)
[2019-10-16 07:02] LABS: Albumin 2.8 g/dL (3.4-5.0); Calcium 8.3 mg/dL (8.5-10.1); Potassium 4.3 mmol/L (3.5-5.1); Uric Acid 7.2 mg/dL (3.5-7.2)
[2019-10-16 07:06] LABS: BUN/Creatinine Ratio 15.3; Bilirubin, Total 0.8 mg/dL (0.2-1.0); Phosphorus 3.9 mg/dL (2.5-4.90); Total Protein 6.6 g/dL (6.4-8.2)
[2019-10-16 09:00] VITALS: BP 123/69
[2019-10-16] MEDS: PANTOPRAZOLE 40 MG TAB PO SCH (09:17)
[2019-10-16] MEDS: FUROSEMIDE 40 MG TAB PO SCH (09:17)
[2019-10-16] MEDS: CLOPIDOGREL BISULFATE 75 MG TAB PO SCH (09:17)
[2019-10-16] MEDS: CARVEDILOL 3.125 MG TAB PO SCH ×2 (09:17→17:19)
[2019-10-16 12:56] VITALS: BP 139/64
[2019-10-16] MEDS ORDERED: PANT40T PO (13:14)
[2019-10-16 17:00] VITALS: BP 108/63
[2019-10-16 17:13] VITALS: BP 139/64
[2019-10-17] MEDS ORDERED: SODIUM CHL 0.9% 1000 ML BAG XX ONE (07:00)
== END 2019-10-16 18:30 | disposition home or self-care (01) | DRG 194 ==
LOC: EDBD 22:56 → ER 22:58 → TELE-CENTR 22:59
PROVIDERS: ADMIT Nurse Practitioner; ATTEND Internal Medicine
PROC: 0JH63XZ Insertion of Tunneled Vascular Access Device into Chest Subcutaneous Tissue and Fascia, Percutaneous Approach (ICD-10-PCS; principal; 2019-10-08)
PROC: 5A1D70Z Performance of Urinary Filtration, Intermittent, Less than 6 Hours Per Day (ICD-10-PCS; 2019-10-08)
PROC: 02H633Z Insertion of Infusion Device into Right Atrium, Percutaneous Approach (ICD-10-PCS; 2019-10-08)
PROC: B5181ZA Fluoroscopy of Superior Vena Cava using Low Osmolar Contrast, Guidance (ICD-10-PCS; 2019-10-08)
PROC: B548ZZA Ultrasonography of Superior Vena Cava, Guidance (ICD-10-PCS; 2019-10-08)
PROC: 5A1D70Z Performance of Urinary Filtration, Intermittent, Less than 6 Hours Per Day (ICD-10-PCS; 2019-10-09)
PROC: 5A1D70Z Performance of Urinary Filtration, Intermittent, Less than 6 Hours Per Day (ICD-10-PCS; 2019-10-15)
DX: I13.2 Hypertensive heart and chronic kidney disease with heart failure and with stage 5 chronic kidney disease, or end stage renal disease (principal); I21.A1 Myocardial infarction type 2; J96.00 Acute respiratory failure, unspecified whether with hypoxia or hypercapnia; N17.0 Acute kidney failure with tubular necrosis; E44.0 Moderate protein-calorie malnutrition; I27.20 Pulmonary hypertension, unspecified; N18.6 End stage renal disease; E11.22 Type 2 diabetes mellitus with diabetic chronic kidney disease; J18.9 Pneumonia, unspecified organism; I50.43 Acute on chronic combined systolic (congestive) and diastolic (congestive) heart failure; E11.65 Type 2 diabetes mellitus with hyperglycemia; E87.1 Hypo-osmolality and hyponatremia; D63.8 Anemia in other chronic diseases classified elsewhere; R31.9 Hematuria, unspecified; I25.10 Atherosclerotic heart disease of native coronary artery without angina pectoris; E78.5 Hyperlipidemia, unspecified; D64.9 Anemia, unspecified; J44.9 Chronic obstructive pulmonary disease, unspecified; E87.6 Hypokalemia; Z85.038 Personal history of other malignant neoplasm of large intestine; Z79.899 Other long term (current) drug therapy; Z79.82 Long term (current) use of aspirin; Z79.51 Long term (current) use of inhaled steroids; Z86.73 Personal history of transient ischemic attack (TIA), and cerebral infarction without residual deficits; Z90.49 Acquired absence of other specified parts of digestive tract; Z95.1 Presence of aortocoronary bypass graft; Z87.891 Personal history of nicotine dependence; Z83.3 Family history of diabetes mellitus; Z82.49 Family history of ischemic heart disease and other diseases of the circulatory system; Z79.84 Long term (current) use of oral hypoglycemic drugs; Z82.5 Family history of asthma and other chronic lower respiratory diseases; Z95.5 Presence of coronary angioplasty implant and graft; Z91.19 Patient's noncompliance with other medical treatment and regimen; I50.82 Biventricular heart failure
CPT/HCPCS: 36415; 36561; 71045; 74176; 76775; 76942; 77001; 80048; 80053; 80061; 80074; 80307; 81001; 82150; 82248; 82306; 82550; 82962; 83036; 83520; 83540; 83550; 83690; 83735; 83880; 83970; 84100; 84443; 84484; 84550; 85014; 85018; 85025; 85610; 86038; 86160; 86256; 87070; 87081; 87205; 90935; 93005; 94640; 96374; 96375; 97110; 97116; 97163; 97530; 99152; 99153; G0378; J0696; J1642; J1815; J2250; J2405; P9047

== ENCOUNTER 2019-10-30 17:02 | Inpatient (IN) | payer OTHER ==
[~2019-10-30] VITALS: Ht 177.8 cm; Wt 87.4 kg
[~2019-10-30 17:02] MED LIST changes: -ASPI-404 PO; +ASPI-543 PO; +GLIP5TAB12 PO; +PANT40T PO
[2019-10-30 18:16] LABS: Basophils # (auto) 0.1 10 ^3/uL (0-0.2); Basophils % (auto) 1.1 % (0.0-2.0); Eosinophils # (auto) 0.3 10 ^3/uL (0-0.8); Eosinophils % (auto) 3.8 % (0.0-7.0); Hematocrit 37.6 % (41.0-53.0); Hemoglobin 12.4 g/dL (13.5-17.5); Lymphocytes # (auto) 0.6 10 ^3/uL (0.4-5.4); Mean Corpuscular Hemoglobin 29.6 pg (28.0-32.0); Mean Corpuscular Hgb Conc. 32.8 g/dL (32.0-36.0); Mean Corpuscular Volume 90.3 fL (80.0-100.0); Monocytes # (auto) 0.7 10 ^3/uL (0-1.3); Monocytes % (auto) 9.4 % (0.0-12.0); Neutrophils # (auto) 5.4 10 ^3/uL (1.6-8.6); Neutrophils % (auto) 76.7 % (37.0-80.0); Nucleated Red Blood Cells % 0.2 %; Platelet Count (auto) 235 10^3/uL (140-450); Red Blood Cells 4.17 10^6/uL (4.5-5.90); Red Cell Distribution Width 18.2 % (11.8-14.3); White Blood Cell 7.1 10^3/uL (4.4-10.8)
[2019-10-30 18:32] LABS: Albumin 3.3 g/dL (3.4-5.0); BUN/Creatinine Ratio 9.9; Calcium 8.4 mg/dL (8.5-10.1); Potassium 4.1 mmol/L (3.5-5.1)
[2019-10-30 18:36] LABS: CRP High Sensitivity 0.36 mg/dL (< 0.3); Magnesium 2.6 mg/dL (1.6-2.6)
[2019-10-30 18:37] LABS: Bilirubin, Total 1.4 mg/dL (0.2-1.0); Total Protein 7.5 g/dL (6.4-8.2)
[2019-10-30] MEDS ORDERED: SODIUM CHLORIDE 0.9% 1,000 ML IV SCH (21:40)
[2019-10-30] MEDS ORDERED: ACETAMINOPHEN 500 MG TAB PO PRN (21:45)
[2019-10-30] MEDS ORDERED: MORPHINE SULF INJ 2 MG/ML SYRINGE 1ML IV PRN ×2 (21:45)
[2019-10-30] MEDS ORDERED: NITROGLYCERIN 0.4 MG SL TAB SL PRN (21:45)
[2019-10-30] MEDS ORDERED: ACETAMINOPHEN 325 MG TAB PO PRN (21:45)
[2019-10-30] MEDS ORDERED: DOCUSATE SOD 100 MG CAP PO PRN (21:45)
[2019-10-30] MEDS ORDERED: DOXYCYCLINE 100MG/250ML 250 ML IV SCH (22:00)
[2019-10-30] MEDS: ALBUTEROL SULF HFA 90MCG INH 200DOSE IN SCH (22:00)
[2019-10-30 22:14] VITALS: BP 133/99
[2019-10-30 22:50] VITALS: BP 148/100
--- NOTE | 2019-10-30 22:50 | NUR ---
Telemetry admit from [facility] admitted to Telemetry unit after SBAR received. Patient oriented to FERNANDO HERNANDEZ, primary RN, unit, room, bed, and unit policies regarding patient care and visiting hours. Patient now on continuous telemetry monitoring, tele box # 13 and telemetry reading on arrival to unit is sinus rhythm. Patient is alert and oriented x4. Patient denies pain at this time. Patient placed on 2L NC, oxygen saturation is 98%. No sign/symptoms of distress noted or verbalized at this time. Patient noted to have his zoll life vest on. Instructed on plan of care and encouraged patient to call for assistance as needed, patient verbalized understanding. Bed is locked in lowest position, side rails x 2 are up, and call light is within reach.
[2019-10-30 23:00] VITALS: BP 148/100
[2019-10-30] MEDS: ONDANSETRON HCL 4 MG/2 ML VIAL IV PRN (23:44)
[2019-10-30] MEDS: CARVEDILOL 12.5 MG TAB PO SCH (23:45)
[2019-10-30] MEDS: DOXYCYCLINE 100 MG TAB/CAP PO SCH (23:45)
[2019-10-30] MEDS: FUROSEMIDE 40 MG TAB PO SCH (23:46)
[2019-10-31] VITALS (8 sets, daily range): BP systolic 124–139; BP diastolic 77–97
--- NOTE | 2019-10-31 00:02 | NUR ---
Hospitalist Paged RE: Sleeping Pill Hospitalist paged regarding sleeping medication. Awaiting call back.
--- NOTE | 2019-10-31 00:05 | NUR ---
MDI WITH HOLDING CHAMBER ADMINISTERED AT THIS TIME. SPO2 98% ON 2L NC, HR 96, RR 18. WILL CONTINUE WITH NEXT SCHEDULED TX.
--- NOTE | 2019-10-31 00:19 | NUR ---
Received Call From Lab RE: Covid-19 Results Received call from Tayo, and was notified that patient's covid-19 test resulted negative. Charge nurse made aware.
--- NOTE | 2019-10-31 00:52 | NUR ---
MRSA Swab MRSA swab collected and sent to lab via bullet.
[2019-10-31] MEDS: HYDROcodone-ACET 5/325MG TAB PO PRN ×2 (01:24→22:59)
--- NOTE | 2019-10-31 02:00 | NUR ---
Transferred to Room 216B Patient transferred to room 216B due to covid-19 test resulting negative. Patient was made aware and transported via wheelchair accompanied by Federico RN. No sign/symptoms of distress noted upon departure. Patient care endorsed to Federico FATIMA.
[2019-10-31] MEDS: FUROSEMIDE 40 MG TAB PO SCH (05:53)
[2019-10-31] MEDS: ALBUTEROL SULF HFA 90MCG INH 200DOSE IN SCH (06:32)
--- NOTE | 2019-10-31 07:00 | NUR ---
OPENING SHIFT NOTE ASSUMED CARE OF PATIENT FROM STOKER INSTALLATION MECHANIC RN ARIANE. PATIENT IS AWAKE AND ALERT X4. PATIENT HAS NO S/S OF DISTRESS/SOB OR PAIN. INSTRUCTED PATIENT ON POC, PATIENT VERBALIZED UNDERSTANDING. BED IS IN LOWEST POSITION WITH SIDE RAILS RAISED X2, BED WHEELS LOCKED, URINAL, CANE, AND CALL LIGHT ARE WITHIN REACH. WILL CONTINUE TO MONITOR.
[2019-10-31] MEDS: CARVEDILOL 12.5 MG TAB PO SCH ×2 (08:11→17:51)
[2019-10-31 09:01] LABS: Basophils # (auto) 0.1 10 ^3/uL (0-0.2); Basophils % (auto) 0.8 % (0.0-2.0); Eosinophils # (auto) 0.1 10 ^3/uL (0-0.8); Eosinophils % (auto) 1.7 % (0.0-7.0); Lymphocytes # (auto) 0.6 10 ^3/uL (0.4-5.4); Lymphocytes % (auto) 7.4 % (10.0-50.0); Monocytes # (auto) 0.6 10 ^3/uL (0-1.3); Monocytes % (auto) 8.4 % (0.0-12.0); Neutrophils # (auto) 6.1 10 ^3/uL (1.6-8.6); Neutrophils % (auto) 81.7 % (37.0-80.0); Nucleated Red Blood Cells % 0.3 %; Red Blood Cells 3.97 10^6/uL (4.5-5.90); White Blood Cell 7.5 10^3/uL (4.4-10.8)
[2019-10-31 09:02] LABS: Hematocrit 36.1 % (41.0-53.0); Hemoglobin 11.9 g/dL (13.5-17.5); Mean Corpuscular Hemoglobin 29.9 pg (28.0-32.0); Mean Corpuscular Hgb Conc. 32.8 g/dL (32.0-36.0); Platelet Count (auto) 228 10^3/uL (140-450); Red Cell Distribution Width 18.6 % (11.8-14.3)
[2019-10-31 09:07] LABS: Albumin 3.3 g/dL (3.4-5.0); Calcium 8.7 mg/dL (8.5-10.1); Potassium 4.6 mmol/L (3.5-5.1)
[2019-10-31 09:10] LABS: Bilirubin, Total 1.6 mg/dL (0.2-1.0); Total Protein 7.2 g/dL (6.4-8.2)
[2019-10-31] MEDS ORDERED: ASCORBIC ACID 1,000 MG TAB PO SCH (10:00)
[2019-10-31] MEDS ORDERED: methylPREDNISolone SOD SUCC 125 MG/2 ML VL IV SCH (10:00)
[2019-10-31] MEDS ORDERED: ZINC SULFATE 220mg CAP or TAB PO SCH (10:00)
[2019-10-31] MEDS ORDERED: CHOLECALCIFEROL (VITD3) 1,000UNIT=25mCg TAB PO SCH (10:00)
[2019-10-31] MEDS: ASPirin-EC 81 mg tab PO SCH (10:40)
[2019-10-31] MEDS: PANTOPRAZOLE 40 MG TAB PO SCH (10:40)
[2019-10-31] MEDS: DOXYCYCLINE 100 MG TAB/CAP PO SCH (10:40)
[2019-10-31] MEDS: CLOPIDOGREL BISULFATE 75 MG TAB PO SCH (10:40)
[2019-10-31] MEDS: ATORVASTATIN 20 MG TAB PO SCH (10:41)
[2019-10-31] MEDS: ENOXAPARIN SOD 30 MG/0.3 ML SYRINGE SC SCH (10:42)
[2019-10-31] MEDS: ONDANSETRON HCL 4 MG/2 ML VIAL IV PRN (12:45)
[2019-10-31] MEDS ORDERED: AZITHROMYCIN 250 MG TAB PO ONE (13:00)
[2019-10-31] MEDS ORDERED: cefTRIAXone 1GM/50ML D5W 50 ML IV ONE (13:00)
[2019-10-31] MEDS ORDERED: DEXTROSE (50%) 50ML SYRG IV PRN (13:00)
[2019-10-31] MEDS ORDERED: ALBUTEROL SULF 2.5 MG/0.5ML(0.5%) NEB SOLN NEB PRN (13:00)
--- NOTE | 2019-10-31 14:00 | NUR ---
PAGED DR. WOODS REGARDING PLAQUENIL AND D-DIMER. AWAITING CALL BACK
[2019-10-31] MEDS: ALBUTEROL SULF 2.5 MG/0.5ML(0.5%) NEB SOLN NEB PRN (14:13)
[2019-10-31] MEDS: IPRATROPIUM BROM 0.5 MG/2.5ML INH SOL NEB PRN (14:13)
--- NOTE | 2019-10-31 15:00 | NUR ---
PAGED DR WOODS AGAIN
[2019-10-31] MEDS ORDERED: metOLazone 5 MG TAB PO ONE (15:15)
--- NOTE | 2019-10-31 16:22 | NUR ---
PAGED DR. WOODS AGAIN. AWAITING CALL BACK
--- NOTE | 2019-10-31 16:26 | NUR ---
SPOKE WITH DR. WOODS INFORMED MD OF D-DIMER AND VERIFIED PLAQUENIL ORDER. PER MD DISCONTINUE PLAQUENIL. WILL FOLLOW THROUGH WITH ORDER.
[2019-10-31] MEDS: ACCU-CHEK COMFORT CURVE STRIP VI SCH ×2 (16:46→22:00)
[2019-10-31] MEDS: InsuLIN REG 1unit/0.01ml Soln (100units/ml) SC SCH ×2 (16:47→22:00)
[2019-10-31] MEDS: FUROSEMIDE INJECTION 100 MG in D5W 5% 100 ML IV SCH (17:08)
--- NOTE | 2019-10-31 18:45 | NUR ---
RT NOTE PT WAS SEEN BY RT FOR PRN HHN TX. PT STATES NO TX NEEDED AT THIS TIME. NO SOB OR DISTRESS NOTED. HR 73, RR 16, BS CLEAR/DIM, POX 97% ON 2L NASAL CANNULA. PT AWARE TO CALL IF TX NEEDED. CONT ORDERED Addendum: 10/31/19 at 1931 by Ruth Mendoza RT Amended: Links added.
--- NOTE | 2019-10-31 19:01 | NUR ---
CLOSING SHIFT NOTE ENDORSED CARE TO APPLICATION TRAINER RN GENET. PATIENT HAS NO S/S OF DISTRESS/SOB OR PAIN AT THIS TIME.
[2019-10-31 19:14] LABS: Urine Bacteria FEW /hpf (None Seen); Urine Blood Negative /uL (Negative); Urine Hyaline Cast MOD /lpf (0 - 2); Urine Specific Gravity 1.011 (1.001-1.035); Urine WBC 1 /hpf (0 - 3)
[2019-10-31 19:23] LABS: Protein, Urine 112.6 mg/dL (0.0-11.9)
--- NOTE | 2019-11-01 03:00 | NUR ---
PT EASILY USING THE URINAL;DENIES PAIN;CALL LIGHT IN REACH;NO DISTRESS NOTED.
[2019-11-01] MEDS: FUROSEMIDE INJECTION 100 MG in D5W 5% 100 ML IV SCH ×3 (03:48→21:41)
[2019-11-01 04:31] VITALS: BP 137/81
--- NOTE | 2019-11-01 04:43 | NUR ---
CALL FROM [facility] STATING PT HAS BEEN MANIFESTING COUPLETS ALL NIGHT. DR VERA SAW PT AND THER WERE NO ORDERS RECEIVED.
--- NOTE | 2019-11-01 04:46 | NUR ---
PER DR VERA'S NOTES;CONTINUE PT ON LASIX GTT.
[2019-11-01] MEDS: InsuLIN REG 1unit/0.01ml Soln (100units/ml) SC SCH ×4 (04:52→23:08)
[2019-11-01] MEDS: ACCU-CHEK COMFORT CURVE STRIP VI SCH ×4 (04:57→23:09)
[2019-11-01 06:46] LABS: Potassium 4.3 mmol/L (3.5-5.1)
[2019-11-01 06:55] LABS: BUN/Creatinine Ratio 15.3; Bilirubin, Total 1.2 mg/dL (0.2-1.0); Calcium 8.8 mg/dL (8.5-10.1); Magnesium 2.6 mg/dL (1.6-2.6)
--- NOTE | 2019-11-01 07:05 | NUR ---
OPENING SHIFT NOTE ASSUMED CARE OF PATIENT FROM GARDEN TRACTOR MECHANIC RN GENET. PATIENT IS AWAKE, ALERT, AND ORIENTED X4. PATIENT HAS NO S/S OF DISTRESS/SOB OR PAIN. INSTRUCTED PATIENT ON POC, PATIENT VERBALIZED UNDERSTANDING. BED IS IN LOWEST POSITION WITH SIDE RAILS RAISED X2, BED WHEELS LOCKED, URINAL, CANE, AND CALL LIGHT ARE WITHIN REACH. WILL CONTINUE TO MONITOR.
--- NOTE | 2019-11-01 07:11 | NUR ---
PT RESTED WELL THROUGHOUT THE NIGHT;DENIES PAIN;SITTING UP WATCHING TELEVISION CALL LIGHT IN REACH;NO DISTRESS OBSERVED. CALL LIGHT IN REACH.
[2019-11-01] MEDS: CARVEDILOL 12.5 MG TAB PO SCH ×2 (07:52→17:18)
[2019-11-01] MEDS: cefTRIAXone 1GM/50ML D5W 50 ML IV SCH (07:52)
[2019-11-01 09:00] VITALS: BP 126/74
--- NOTE | 2019-11-01 09:40 | NUR ---
MD VERA AT BEDSIDE UPDATED MD ON PATIENT'S STATUS, MD IS AWARE. INFORMED MD OF TELE STRIP RHYTHM, MD IS AWARE AND ORDERED DOBUTAMINE DRIP. WILL FOLLOW THROUGH WITH ORDERS
[2019-11-01] MEDS: PANTOPRAZOLE 40 MG TAB PO SCH (09:43)
[2019-11-01] MEDS: ATORVASTATIN 20 MG TAB PO SCH (09:44)
[2019-11-01] MEDS: AZITHROMYCIN 250 MG TAB PO SCH (09:44)
[2019-11-01] MEDS: ENOXAPARIN SOD 30 MG/0.3 ML SYRINGE SC SCH (09:44)
[2019-11-01] MEDS: ASPirin-EC 81 mg tab PO SCH (09:44)
[2019-11-01] MEDS: CLOPIDOGREL BISULFATE 75 MG TAB PO SCH (09:44)
[2019-11-01] MEDS: DOBUTamine 1000MCG/ML 250 ML IV SCH (10:20)
--- NOTE | 2019-11-01 11:00 | NUR ---
LASIX STILL HAS 50 ML OF MEDICATION IN THE BAG. WILL ADMINISTER NEW BAG WHEN OLD BAG IS FINISHED. WILL CONTINUE TO MONITOR.
[2019-11-01 14:00] VITALS: BP 131/80
--- NOTE | 2019-11-01 16:16 | NUR ---
MD MALLORY AT BEDSIDE UPDATED MD ON PATIENT'S STATUS INCLUDING BUN AND CREATININE LEVELS. IS AWARE AND WANTS DR. JAQUAN CHURCH TO DISCUSS STARTING DIALYSIS. PAGED MD PARTIDA AWAITING CALL BACK.
[2019-11-01 17:00] VITALS: BP 151/88
[2019-11-01] MEDS: SPIRONOLACTONE 25 MG TAB PO SCH (17:17)
--- NOTE | 2019-11-01 18:44 | NUR ---
CLOSING SHIFT NOTE PATIENT HAS NO S/S OF DISTRESS/SOB OR PAIN. WILL ENDORSE CARE TO BACTERIOLOGIST FISHERY AKUA CLARKE.
--- NOTE | 2019-11-01 20:00 | NUR ---
Opening Shift Note Assumed care of patient. Awake, alert and oriented. No S/S of distress/SOB or pain. Instructed on POC and to call for assist PRN. Bed locked, in lowest position, call light within reach, bed alarm on, side rails up x2. Will continue to monitor for changes Q1hr and PRN.
[2019-11-01] MEDS ORDERED: FUROSEMIDE INJECTION 10 ML ONE (21:07)
--- NOTE | 2019-11-01 21:45 | NUR ---
Respiratory note: ASSESSED PT FOR PRN MED NEB AT THIS TIME, PT DENIES SOB AT THIS TIME, NO RESP DISTRESS NOTED, NO TX INDICATED. PULSE OX 98% ON 2LNC, HR 77, RR 20, BILATERAL BS CLEAR.
[2019-11-01 22:00] VITALS: BP 132/82
[2019-11-01] MEDS: HYDROcodone-ACET 5/325MG TAB PO PRN (22:15)
--- NOTE | 2019-11-01 22:15 | NUR ---
Pain assessment Patient complaining of generalized pain 11/11. Medicated pt with [place]cca as ordered. Will continue to monitor
--- NOTE | 2019-11-01 23:15 | NUR ---
Pain reassessment Patient sleeping comfortably in bed. No S/S of distress or pain. Will continue to monitor.
[2019-11-02] VITALS (7 sets, daily range): BP systolic 114–149; BP diastolic 74–99
--- NOTE | 2019-11-02 02:01 | NUR ---
Hospitalist paged Pt having abnormal heart rhythm. ECG done. Waiting for call back.
--- NOTE | 2019-11-02 02:21 | NUR ---
RECEIVED CALL BACK FROM HOSPITALIST Hospitalist Migel notified of abnormal ECG. No new orders received. Will continue to monitor.
--- NOTE | 2019-11-02 03:22 | NUR ---
Rounds Patient resting comfortably in bed. No S/S of distress or pain. Will continue to monitor
[2019-11-02] MEDS: DOBUTamine 1000MCG/ML 250 ML IV SCH (04:55)
[2019-11-02] MEDS: SPIRONOLACTONE 25 MG TAB PO SCH ×2 (06:24→17:36)
[2019-11-02] MEDS: InsuLIN REG 1unit/0.01ml Soln (100units/ml) SC SCH ×4 (06:24→21:52)
[2019-11-02] MEDS: ACCU-CHEK COMFORT CURVE STRIP VI SCH ×4 (06:25→21:30)
--- NOTE | 2019-11-02 06:34 | NUR ---
Rounds Patient awake in bed watching TV. No S/S of distress, pain or SOB noted. Will continue to monitor.
--- NOTE | 2019-11-02 07:10 | NUR ---
OPENING SHIFT NOTE ASSUMED CARE OF PATIENT FROM TREATER HELPER AKUA CLARKE. PATIENT IS AWAKE, ALERT, AND ORIENTED X4. PATIENT HAS NO S/S OF DISTRESS/SOB OR PAIN. INSTRUCTED PATIENT ON POC, PATIENT VERBALIZED UNDERSTANDING. BED IS IN LOWEST POSITION WITH SIDE RAILS RAISED X2, BED WHEELS LOCKED, URINAL, CANE, AND CALL LIGHT ARE WITHIN REACH. WILL CONTINUE TO MONITOR.
--- NOTE | 2019-11-02 07:15 | NUR ---
PAGED LABORATORY TO INFORM THEM 0400 LABS WERE NOT DRAWN. [facility] IS ON THEIR WAY TO DRAW LAB
[2019-11-02 07:26] LABS: Basophils # (auto) 0 10 ^3/uL (0-0.2); Basophils % (auto) 0.2 % (0.0-2.0); Eosinophils # (auto) 0 10 ^3/uL (0-0.8); Eosinophils % (auto) 0.1 % (0.0-7.0); Hematocrit 36.1 % (41.0-53.0); Hemoglobin 11.7 g/dL (13.5-17.5); Lymphocytes # (auto) 0.5 10 ^3/uL (0.4-5.4); Lymphocytes % (auto) 3.2 % (10.0-50.0); Mean Corpuscular Hemoglobin 29.1 pg (28.0-32.0); Mean Corpuscular Hgb Conc. 32.4 g/dL (32.0-36.0); Mean Corpuscular Volume 89.8 fL (80.0-100.0); Monocytes # (auto) 0.9 10 ^3/uL (0-1.3); Monocytes % (auto) 6.4 % (0.0-12.0); Neutrophils # (auto) 12.6 10 ^3/uL (1.6-8.6); Neutrophils % (auto) 90.1 % (37.0-80.0); Nucleated Red Blood Cells % 0.1 %; Platelet Count (auto) 230 10^3/uL (140-450); Red Blood Cells 4.02 10^6/uL (4.5-5.90)
[2019-11-02 07:41] LABS: Albumin 3.2 g/dL (3.4-5.0); Calcium 8.7 mg/dL (8.5-10.1); Potassium 3.9 mmol/L (3.5-5.1)
[2019-11-02 07:45] LABS: BUN/Creatinine Ratio 18.2; Bilirubin, Total 0.8 mg/dL (0.2-1.0); Total Protein 6.9 g/dL (6.4-8.2)
--- NOTE | 2019-11-02 07:50 | NUR ---
RANJIT PARTIDA FOR CRITICAL BUN. AWAITING CALL BACK
[2019-11-02] MEDS: FUROSEMIDE INJECTION 100 MG in D5W 5% 100 ML IV SCH (08:00)
[2019-11-02] MEDS: cefTRIAXone 1GM/50ML D5W 50 ML IV SCH (08:04)
[2019-11-02] MEDS: CARVEDILOL 12.5 MG TAB PO SCH ×2 (08:05→17:36)
--- NOTE | 2019-11-02 08:11 | NUR ---
SPOKE WITH DR. PARTIDA INFORMED MD OF PATIENT'S BUN AND CREATININE LEVELS. MD IS AWARE AND WANTS LASIX DRIP TO BE STOPPED. MD WILL PUT IN ORDERS FOR DIALYSIS TODAY. INFORMED PATIENT AND STOPPED LASIX DRIP
--- NOTE | 2019-11-02 09:22 | NUR ---
RT NOTE: WENT TO PTS ROOM TO ASSESS FOR PRN BREATHING TX, PT AWAKE AND ALERT NO S/S OF SOB. HR 69, RR 18, SPO2 99% ON 2L NC. WILL CONTINUE TO MONITOR PT. NO INDICATION FOR TX.
[2019-11-02] MEDS: AZITHROMYCIN 250 MG TAB PO SCH (09:33)
[2019-11-02] MEDS: ASPirin-EC 81 mg tab PO SCH (09:33)
[2019-11-02] MEDS: CLOPIDOGREL BISULFATE 75 MG TAB PO SCH (09:33)
[2019-11-02] MEDS: ATORVASTATIN 20 MG TAB PO SCH (09:33)
[2019-11-02] MEDS: PANTOPRAZOLE 40 MG TAB PO SCH (09:33)
[2019-11-02] MEDS: ENOXAPARIN SOD 30 MG/0.3 ML SYRINGE SC SCH (09:33)
--- NOTE | 2019-11-02 12:30 | NUR ---
MD VERA AT BEDSIDE UPDATED MD ON PATIENT'S STATUS INCLUDING RHYTHM AND HEART RATE. MD IS AWARE AND ORDERED DOBUTAMINE TO BE STOPPED. WILL FOLLOW THROUGH WITH ORDERS.
[2019-11-02] MEDS ORDERED: SODIUM CHL 0.9% 1000 ML BAG XX ONE (12:45)
--- NOTE | 2019-11-02 16:02 | NUR ---
DIALYSIS DONE SHEET TAILER TOOK OFF 2400 ML DURING DIALYSIS.
--- NOTE | 2019-11-02 16:08 | NUR ---
PATIENT FELT LIKE HE WAS GOING TO HAVE A BM. ASSISTED PATIENT TO BATHROOM. WHILE USING THE BATHROOM PATIENT FELT LIKE HE WAS GOING TO PASS OUT. PATIENT'S LIPS WERE TURNING BLUE, ASSISTED PATIENT BACK TO BED WITH HELP FROM SANITATION SUPERVISOR. PATIENT'S SPO2 WAS 81% ADMINISTERED OXYGEN TO PATIENT, DIALYSIS NURSE INCREASED O2 TO 4 LITERS. PATIENT'S SPO2 IS NO 97% AND PATIENT STATES HE IS FEELING BETTER. WILL CONTINUE TO MONITOR.
--- NOTE | 2019-11-02 18:10 | NUR ---
Respiratory note: NO PRN TX GIVEN AT THIS TIME, NOT INDICATED. NO SOB NOTED. SPO2 98% ON 4L NC, DECREASED TO 3LPM. HR 121, RR 18.
--- NOTE | 2019-11-02 18:47 | NUR ---
CLOSING SHIFT NOTE PATIENT HAS NO S/S OF DISTRESS/SOB OR PAIN AT THIS TIME. WILL ENDORSE CARE TO ENVIRONMENTAL SCIENCES PROFESSOR RN.
--- NOTE | 2019-11-02 19:50 | NUR ---
Opening Shift Note Assumed care of patient, awake and alert, oriented x 4, follows direction, clear speech. On oxygen at 3L via NC with even and unlabored respirations, no S/S of distress/SOB or pain. patient turns independently in bed. Noted right HD cath to right upper chest, dressing CDI. Bed in lowest locked position with side rails up x 2 and call light within reach. Instructed on POC and to call for assist PRN, will continue to monitor for changes Q1hr and PRN.
[2019-11-02] MEDS ORDERED: EPOETIN ALFA 10,000 UNIT/1 ML VIAL SC ONE (21:00)
[2019-11-02] MEDS: HYDROcodone-ACET 5/325MG TAB PO PRN (21:29)
[2019-11-03 05:00] VITALS: BP 121/83
[2019-11-03 05:53] LABS: Basophils # (auto) 0 10 ^3/uL (0-0.2); Basophils % (auto) 0.1 % (0.0-2.0); Eosinophils # (auto) 0.3 10 ^3/uL (0-0.8); Hematocrit 35.5 % (41.0-53.0); Hemoglobin 11.8 g/dL (13.5-17.5); Lymphocytes # (auto) 0.6 10 ^3/uL (0.4-5.4); Lymphocytes % (auto) 6.4 % (10.0-50.0); Mean Corpuscular Hemoglobin 29.6 pg (28.0-32.0); Mean Corpuscular Hgb Conc. 33.3 g/dL (32.0-36.0); Mean Corpuscular Volume 88.9 fL (80.0-100.0); Monocytes # (auto) 0.9 10 ^3/uL (0-1.3); Monocytes % (auto) 9.3 % (0.0-12.0); Neutrophils # (auto) 7.6 10 ^3/uL (1.6-8.6); Neutrophils % (auto) 81.2 % (37.0-80.0); Platelet Count (auto) 187 10^3/uL (140-450); Red Blood Cells 3.99 10^6/uL (4.5-5.90); Red Cell Distribution Width 18.5 % (11.8-14.3); White Blood Cell 9.4 10^3/uL (4.4-10.8)
[2019-11-03 06:20] LABS: Albumin 3.1 g/dL (3.4-5.0); Calcium 8.3 mg/dL (8.5-10.1); Potassium 3.5 mmol/L (3.5-5.1)
[2019-11-03] MEDS: ACCU-CHEK COMFORT CURVE STRIP VI SCH ×4 (06:22→21:57)
[2019-11-03] MEDS: InsuLIN REG 1unit/0.01ml Soln (100units/ml) SC SCH ×4 (06:24→22:03)
[2019-11-03 06:26] LABS: BUN/Creatinine Ratio 14.8; Bilirubin, Total 0.8 mg/dL (0.2-1.0); Total Protein 6.9 g/dL (6.4-8.2)
[2019-11-03] MEDS: SPIRONOLACTONE 25 MG TAB PO SCH (06:35)
--- NOTE | 2019-11-03 07:04 | NUR ---
Closing Note patient resting in bed with oxygen on, even and respirations, no s/s of distress. Bed in lowest locked position with side rails up x 2 and call light within reach. Endorsed care to day shift RN.
[2019-11-03] MEDS: CARVEDILOL 12.5 MG TAB PO SCH ×2 (07:47→20:08)
--- NOTE | 2019-11-03 07:49 | NUR ---
MEDICATION ADMINISTRATION COVERING FOR PRIMARY RN. ADMINISTERED MEDICATION PER MD ORDER. EDUCATION PROVIDED ON MEDICATION. PATIENT WELL INFORMED AND STATES, "I TAKE THIS MEDICATION AT HOME." PATIENT HAS NO QUESTIONS AT THIS TIME.
[2019-11-03 08:30] VITALS: BP 118/92
[2019-11-03 09:00] VITALS: BP 118/92
--- NOTE | 2019-11-03 09:00 | NUR ---
OPENING SHIFT NOTE PATIENT IS AWAKE, ALERT, AND ORIENTED X4. PATIENT HAS NO S/S OF DISTRESS/SOB OR PAIN. INSTRUCTED PATIENT ON POC, PATIENT VERBALIZED UNDERSTANDING. BED IS IN LOWEST POSITION WITH SIDE RAILS RAISED X2, BED WHEELS LOCKED, URINAL, CANE, AND CALL LIGHT ARE WITHIN REACH. WILL CONTINUE TO MONITOR.
[2019-11-03] MEDS: ASPirin-EC 81 mg tab PO SCH (09:20)
[2019-11-03] MEDS: cefTRIAXone 1GM/50ML D5W 50 ML IV SCH (09:20)
[2019-11-03] MEDS: PANTOPRAZOLE 40 MG TAB PO SCH (09:20)
[2019-11-03] MEDS: AZITHROMYCIN 250 MG TAB PO SCH (09:20)
[2019-11-03] MEDS: ENOXAPARIN SOD 30 MG/0.3 ML SYRINGE SC SCH (09:21)
[2019-11-03] MEDS: CLOPIDOGREL BISULFATE 75 MG TAB PO SCH (09:21)
[2019-11-03] MEDS: ATORVASTATIN 20 MG TAB PO SCH (09:21)
--- NOTE | 2019-11-03 09:30 | NUR ---
Respiratory note: PT ASSESSED FOR PRN MEDNEB TX. SPO2 100% ON 2L NC HR 99 RR 16 B/S CLEAR-DIMINISHED. MEDNEB NOT INDICATED AT THIS TIME. PT AWARE TO HAVE RT PAGED IF THEY BECOME SOB.
--- NOTE | 2019-11-03 10:00 | NUR ---
MD VERA AT BEDSIDE UPDATED MD ON PATIENT'S STATUS, MD IS AWARE OF RHYTHM. MD ORDERED DIGOXIN AND EKG. PER MD START AMIODARONE DRIP PER PHARMACY IF EKG SHOWS ATRIAL FIBRILLATION. WILL FOLLOW THROUGH WITH ORDERS.
[2019-11-03] MEDS ORDERED: DIGOXIN (250MCG/ML) 2 ML AMPULE IV ONE (10:45)
--- NOTE | 2019-11-03 11:03 | NUR ---
MD WOODS AT BEDSIDE UPDATED MD ON PATIENT'S STATUS INCLUDING HEART RHYTHM. MD IS AWARE AND ORDERED ULTRASOUND OF BILATERAL LOWER EXTREMITIES AND AND ABG ON ROOM AIR. WILL FOLLOW THROUGH WITH ORDERS.
--- NOTE | 2019-11-03 11:45 | NUR ---
PAGED DR. VERA FOR EKG RESULTS. PER TRANSFER SERVICE THEY WANT ME TO CALL AFTER LUNCH, BECAUSE DR. VERA WILL BE IN THE OFFICE. WILL CALL BACK LATER.
--- NOTE | 2019-11-03 12:02 | NUR ---
Nutrition Assessment Notes: please see attached link for complete assessment [employer] needs BW 93 [id number] kcals (25-27 kcal/kgBW). Est Protein needs: 111-130 gms/day (1.2-1.4 gm/kgBW r/t HD). Will continue to monitor and reassess prn. Addendum: 11/03/19 at [address] Amended: Links added.
[2019-11-03 13:00] VITALS: BP 141/76
--- NOTE | 2019-11-03 13:30 | NUR ---
PAGED DR. VERA AGAIN REGARDING EKG RESULTS LEFT MESSAGE WITH OFFICE, AWAITING CALL BACK
--- NOTE | 2019-11-03 14:15 | NUR ---
CALLED RT FOR ABG. INFORMED RT ABG HAS NOT BEEN DONE AND PATIENT IS ON ROOM AIR RIGHT NOW AND FEELS DIZZY. RT GENNA WILL DO ABG RIGHT NOW.
--- NOTE | 2019-11-03 14:59 | NUR ---
SHOWED MD SHAIKH MONTES RESULTS. PER PAGE DR. VERA FOR RESULTS. WILL FOLLOW THROUGH WITH ORDERS.
--- NOTE | 2019-11-03 15:08 | NUR ---
PAGED DR. VERA AGAIN FOR RESULTS OF EKG. AWAITING CALL BACK
[2019-11-03 17:00] VITALS: BP 150/81
--- NOTE | 2019-11-03 18:53 | NUR ---
CLOSING SHIFT NOTE PATIENT HAS NO S/S OF DISTRESS/SOB OR PAIN AT THIS TIME. WILL ENDORSE CARE OT METAL SHEET ROLLER OPERATOR AKUA LORD.
--- NOTE | 2019-11-03 19:25 | NUR ---
RECEIVED PATIENT FROM DAY SHIFT RN. PATIENT RESTING IN BED. NO S/S OF DISTRESS NOTED. DENIED PAIN FOR NOW. DENIED ANY CHEST PAIN AND DISCOMFORT AT THIS TIME. DRESSING C/D/I ON RIGHT UPPER CHEST DIALYSIS CATHETER SITE. STRICT I & O. POC INSTRUCTED AND ENCOURAGED PATIENT TO CALL FOR SEARCH ENGINE OPTIMIZER IF NEEDED. BED IN LOWEST POSITION WITH SIDE RAILS UP X 2. CALL LAWSON WITHIN REACH. ALARM ON. CONTINUE TO MONITOR FOR CHANGES Q1H AND PRN.
--- NOTE | 2019-11-03 19:27 | NUR ---
PAGED DR. VERA FOR RESULTS OF EKG. AWAITING CALL BACK
--- NOTE | 2019-11-03 20:09 | NUR ---
REASSESSED PATIENT BP 124/84, HR 112. AFTERNOON COREG GIVEN ORDERED. CONTINUE TO MONITOR.
--- NOTE | 2019-11-03 20:30 | NUR ---
returned call Dr. VERA returned call, updated on patient status and reason for call, NO NEW orders received. KEEP OBSERVATION. Continue care.
[2019-11-03] MEDS: SACUBITRIL-VALSARTAN 24mg/26mg TAB PO SCH (21:55)
--- NOTE | 2019-11-03 22:32 | NUR ---
Respiratory note: PT SEEN AND ASSESSED FOR PRN MED NEB TX AT 2232. TX NOT INDICATED AT THIS TIME. PT DENIES ANY RESPIRATORY DISTRESS. HR 110 RR 18 SP02 97% ON 2L NASAL CANNULA.
[2019-11-03 22:51] VITALS: BP 130/86
--- NOTE | 2019-11-04 00:15 | NUR ---
IV insertion IV access obtained, via clean sterile technique by inserting [20] gauge catheter at [LAC] after [1] attempt(s). IV secured properly. No trauma to site. Patient tolerated well. NOTE: []
[2019-11-04 02:15] VITALS: BP 126/72
--- NOTE | 2019-11-04 02:16 | NUR ---
MD Called/paged [ROLA] called re:[PATIENT'S HR UP TO 130S, AND RHYTHM CHANGED, EKG DONE, SHOWED JUNCTIONAL TACH 111, VITALS, TEMP 99.6, BP 126/72, RR 18, HR 112, O2 SAT 98% ON 2L/NC. PATIENT DENIED ANY CHEST PAIN AND DISCOMFORT.] . Waiting for call back. Continue care.
--- NOTE | 2019-11-04 02:31 | NUR ---
IN ED, TALKED TO Dr. CANELA returned call, updated on patient status and reason for call, orders received. METOPROL 5MG Q5MINS PRN FOR HR OVER 120. Continue care. Addendum: 11/04/19 at 0300 by Froy Nichols RN MD CANELA SIGNED ON EKG STRIP.
[2019-11-04] MEDS ORDERED: METOPROLOL TARTRATE 1MG/1ML-5ML VIAL IV SCH (02:45)
--- NOTE | 2019-11-04 02:59 | NUR ---
REASSESSED BP 98/55, HR 109. CONTINUE TO MONITOR.
[2019-11-04 06:02] VITALS: BP 116/73
[2019-11-04 06:02] LABS: Potassium 3.5 mmol/L (3.5-5.1)
[2019-11-04 06:08] LABS: BUN/Creatinine Ratio 16.2; Bilirubin, Total 0.8 mg/dL (0.2-1.0); Calcium 8.1 mg/dL (8.5-10.1); Phosphorus 6.4 mg/dL (2.5-4.90); Total Protein 6.1 g/dL (6.4-8.2)
[2019-11-04] MEDS: ACCU-CHEK COMFORT CURVE STRIP VI SCH ×4 (06:20→21:26)
[2019-11-04] MEDS: InsuLIN REG 1unit/0.01ml Soln (100units/ml) SC SCH ×4 (06:21→21:29)
--- NOTE | 2019-11-04 06:22 | NUR ---
ACCU-CHECK, BS 170. INSULIN GIVEN ORDERED. CONTINUE TO MONITOR.
[2019-11-04] MEDS ORDERED: SODIUM CHL 0.9% 1000 ML BAG XX ONE (07:00)
[2019-11-04 08:00] VITALS: BP 129/79
[2019-11-04] MEDS: CARVEDILOL 12.5 MG TAB PO SCH ×2 (08:00→17:57)
--- NOTE | 2019-11-04 08:00 | NUR ---
Opening Shift Note Assumed care of patient, awake, alert and oriented X4. No S/S of distress/SOB or pain. Tele# 40, sinus tachycardia @ 97 bpm. Right upper chest wall Ray Catheter with dressing clean, dry and intact. IV X 2, right forearm, both 22 gauge, patent and saline locked, right antecubital, 20 gauge, patent and saline locked. Instructed on POC and to call for assist PRN, verbalized understanding. Bed locked, in lowest position, call light within reach, will continue to monitor for changes Q1hr and PRN.
--- NOTE | 2019-11-04 09:00 | NUR ---
RADIOLOGY Call received from Dr Rodrigues, radiologist, verbalized CT Angio positive for a non-occlusive PE to pulmonary artery. Paged Dr Dumont to inform, awaiting return call. Patient remains asymptomatic.
--- NOTE | 2019-11-04 09:17 | NUR ---
CARDIOLOGY Dr Barba at bedside for Cardiology consult, new orders received and followed through. Patient updated on plan of care, verbalized understanding.
[2019-11-04] MEDS ORDERED: AMIODARONE 450mg/250ml AE 250 ML IV SCH (09:28)
[2019-11-04] MEDS ORDERED: AMIODARONE HCL 150 MG in D5W 5% 100 ML IV ONE (09:30)
--- NOTE | 2019-11-04 10:05 | NUR ---
Dr Dumont at nurses station, informed of positive CT Angio, verbalized understanding.
[2019-11-04] MEDS: cefTRIAXone 1GM/50ML D5W 50 ML IV SCH (10:08)
--- NOTE | 2019-11-04 11:26 | NUR ---
Respiratory note: PT ASSESSED FOR PRN MED NEB TX, NO TX DESIRED NOR INDICATED AT THIS TIME. PT CURRENTLY HAVING DIALYSIS, NO DISTRESS NOTED. PT AND RN AWARE TO HAVE RT PAGED IF NEEDED. HR 51 RR 16 SPO2 99% ON 2L N/C.
[2019-11-04] MEDS: CLOPIDOGREL BISULFATE 75 MG TAB PO SCH (11:55)
[2019-11-04] MEDS: PANTOPRAZOLE 40 MG TAB PO SCH (11:55)
[2019-11-04] MEDS: ASPirin-EC 81 mg tab PO SCH (11:55)
[2019-11-04] MEDS: ATORVASTATIN 20 MG TAB PO SCH (11:55)
[2019-11-04] MEDS: SACUBITRIL-VALSARTAN 24mg/26mg TAB PO SCH ×2 (11:55→21:25)
[2019-11-04] MEDS: AZITHROMYCIN 250 MG TAB PO SCH (11:56)
[2019-11-04] MEDS: ENOXAPARIN SOD 30 MG/0.3 ML SYRINGE SC SCH (11:56)
[2019-11-04 12:00] VITALS: BP 107/73
--- NOTE | 2019-11-04 12:30 | NUR ---
AMIODARONE BOLUS Amiodarone Bolus started to right forearm, 22 gauge. V/S 107/75 HR 63 Witnessed by Hema Rangel RN, Charge Nurse. Patient remained stable throughout bolus
[2019-11-04] MEDS: HYDROcodone-ACET 5/325MG TAB PO PRN (12:40)
--- NOTE | 2019-11-04 12:48 | NUR ---
AMIODARONE BOLUS Amiodarone bolus complete V/S 107/61 HR 66 Patient remains stable Right forearm 22 gauge remains patent Maintenance Amiodarone dose started at 33.3 ml/hr to right forearm, 22 gauge.
[2019-11-04] MEDS ORDERED: APIXABAN 5 MG TAB PO ONE (13:15)
[2019-11-04 14:07] LABS: INR 1.28 (0.9-1.15)
[2019-11-04] MEDS: AMIODARONE 450mg/250ml AE 250 ML IV SCH (16:22)
[2019-11-04 17:00] VITALS: BP 116/59
--- NOTE | 2019-11-04 18:40 | NUR ---
Respiratory note: NO PRN TX GIVEN AT THIS TIME, NOT INDICATED, NO SOB NOTED. SPO2 99% ON 2L NC, HR 76, RR 16. PT STATES HE FEELS ANXIOUS, WORRIED THAT HE WON'T WAKE UP. RN NOTIFIED.
--- NOTE | 2019-11-04 19:12 | NUR ---
Care endorsed to AKUA Villalba, night nurse.
--- NOTE | 2019-11-04 19:15 | NUR ---
RECEIVED PATIENT FROM DAY SHIFT RN. PATIENT RESTING IN BED. NO S/S OF DISTRESS NOTED. DENIED PAIN FOR NOW. DENIED ANY CHEST PAIN AND DISCOMFORT AT THIS TIME. DRESSING C/D/I ON RIGHT UPPER CHEST DIALYSIS CATHETER SITE. PATIENT IS NON AMIODARONE DRIP @ 16.66ML/HR. POC INSTRUCTED AND ENCOURAGED PATIENT TO CALL FOR WATER RESOURCES TECHNICAL OFFICER IF NEEDED. BED IN LOWEST POSITION WITH SIDE RAILS UP X 2. CALL LAWSON WITHIN REACH. ALARM ON. CONTINUE TO MONITOR FOR CHANGES Q1H AND PRN.
[2019-11-04] MEDS ORDERED: EPOETIN ALFA 10,000 UNIT/1 ML VIAL SC ONE (21:00)
[2019-11-04] MEDS: APIXABAN 5 MG TAB PO SCH (21:25)
--- NOTE | 2019-11-04 21:30 | NUR ---
ACCU-CHECK, BS 139 INSULIN GIVEN ORDERED. CONTINUE TO MONITOR.
[2019-11-04 22:00] VITALS: BP 114/53
--- NOTE | 2019-11-04 22:41 | NUR ---
RT PAGED FOR BREATHING TREATMENT.
--- NOTE | 2019-11-04 22:41 | NUR ---
PATIENT FEELING NOT GOOD, AND REQUESTED ACCU-CHECK, BS 164. CONTINUE TO MONITOR.
[2019-11-04] MEDS: IPRATROPIUM BROM 0.5 MG/2.5ML INH SOL NEB PRN (22:59)
[2019-11-04] MEDS: ALBUTEROL SULF 2.5 MG/0.5ML(0.5%) NEB SOLN NEB PRN (22:59)
[2019-11-05] MEDS: AMIODARONE 450mg/250ml AE 250 ML IV SCH ×2 (02:19→16:38)
--- NOTE | 2019-11-05 04:00 | NUR ---
PATIENT SLEEPING. NO S/S OF DISTRESS NOTED. CONTINUE CARE.
[2019-11-05] MEDS: ONDANSETRON HCL 4 MG/2 ML VIAL IV PRN ×2 (05:32→20:20)
--- NOTE | 2019-11-05 05:32 | NUR ---
PATIENT C/O NAUSEA AND TRIED TO VOMIT, NOTHING OUT. MEDICATED PATIENT ORDERED. CONTINUE TO MONITOR.
[2019-11-05 06:00] VITALS: BP 128/59
[2019-11-05] MEDS: ACCU-CHEK COMFORT CURVE STRIP VI SCH ×4 (06:34→21:46)
[2019-11-05] MEDS: InsuLIN REG 1unit/0.01ml Soln (100units/ml) SC SCH ×4 (06:35→21:48)
--- NOTE | 2019-11-05 08:00 | NUR ---
Opening Shift Note Assumed care of patient, awake, alert and oriented X4. No S/S of distress/SOB or pain. O2 @ 3 LPM via nasal cannula with sats @ 94%. Tele# 40, sinus rhythm @ 70 bpm. Right upper chest wall Ray Cath with dressing clean, dry and intact. IV X2, both right forearm, 20 gauge, both patent and saline locked. Instructed on POC and to call for assist PRN, verbalized understanding. Bed locked, in lowest position, call light within reach, will continue to monitor for changes Q1hr and PRN.
--- NOTE | 2019-11-05 08:04 | NUR ---
Respiratory note: PT AWAKE, AND ALERT. NO RESPIRATORY DISTRESS NOTED AT THIS TIME. SPO2 95% ON 2L NC, HR 46, RR 18, BS CLEAR BILATERALLY. PRN MEDNEB TX NOT INDICATED AT THIS TIME. PT INFORMED TO PUSH CALL BUTTON IF INCREASED WOB, SOB, OR WHEEZING OCCURS.
[2019-11-05 09:00] VITALS: BP 119/61
[2019-11-05] MEDS: cefTRIAXone 1GM/50ML D5W 50 ML IV SCH (09:16)
--- NOTE | 2019-11-05 09:30 | NUR ---
ROUNDS Dr Dumont at bedside for rounds, new orders received and followed through. Patient updated on plan of care, verbalized understanding.
[2019-11-05] MEDS ORDERED: SPIRONOLACTONE 25 MG TAB PO SCH (10:00)
[2019-11-05] MEDS: CARVEDILOL 12.5 MG TAB PO SCH ×2 (10:38→18:17)
[2019-11-05] MEDS: APIXABAN 5 MG TAB PO SCH ×2 (10:43→21:52)
[2019-11-05] MEDS: SACUBITRIL-VALSARTAN 24mg/26mg TAB PO SCH ×2 (10:43→21:45)
[2019-11-05] MEDS: CLOPIDOGREL BISULFATE 75 MG TAB PO SCH (10:43)
[2019-11-05] MEDS: ATORVASTATIN 20 MG TAB PO SCH (10:43)
[2019-11-05] MEDS: AZITHROMYCIN 250 MG TAB PO SCH (10:44)
[2019-11-05] MEDS: PANTOPRAZOLE 40 MG TAB PO SCH (10:44)
[2019-11-05 13:00] VITALS: BP 142/67
[2019-11-05 17:00] VITALS: BP 117/68
--- NOTE | 2019-11-05 19:24 | NUR ---
Care endorsed to AKUA Riley, night nurse.
[2019-11-05 19:58] VITALS: BP 117/68
--- NOTE | 2019-11-05 20:40 | NUR ---
Respiratory note: PT AWAKE, AND THROWING UP. NO RESPIRATORY DISTRESS NOTED AT THIS TIME. SPO2 98% ON 4L NC, HR 34, RR 18, BS CLEAR BILATERALLY. PRN MEDNEB TX NOT INDICATED AT THIS TIME. PT INFORMED TO PUSH CALL BUTTON IF INCREASED WOB, SOB, OR WHEEZING OCCURS. RN INFORMED OF HR BEING LOW.
--- NOTE | 2019-11-05 21:14 | NUR ---
RT CONCERNED RT STATES PER PULSE OX HR LOW 30S. CHECKED PATIENT MONITOR #40 IS SB 59 TO SR 60S WITH BIGEMINY PVCS. CONTINUES ON AMIORDARONE GTT 16.66ML/HR. EKG DONE STATES PATIENT SR 73-74. PATIENT IS IN APPARENT CARDIAC OR PULMONARY DISTRESS OR SOB ON O2 3LNC. Addendum: 11/05/19 at 2118 by DENISE TORRES RN RN AUSCULTATED PATIENT HR 1 FULL MINUTE HR-62.
[2019-11-05 22:00] VITALS: BP 98/52
[2019-11-06 05:00] VITALS: BP 138/56
--- NOTE | 2019-11-06 05:34 | NUR ---
DIALYSIS NURSE CALLED THIS MORNING AND STATES SHE WILL BE AT THE HOSPITAL FOR PATIENT DIALYSIS.
[2019-11-06] MEDS: ACCU-CHEK COMFORT CURVE STRIP VI SCH ×4 (05:51→22:52)
[2019-11-06] MEDS: InsuLIN REG 1unit/0.01ml Soln (100units/ml) SC SCH ×4 (05:53→22:55)
[2019-11-06] MEDS ORDERED: SODIUM CHL 0.9% 1000 ML BAG XX ONE (07:00)
[2019-11-06 07:01] LABS: BUN/Creatinine Ratio 10.5; Calcium 8.1 mg/dL (8.5-10.1); Potassium 3.5 mmol/L (3.5-5.1)
[2019-11-06] MEDS: CARVEDILOL 12.5 MG TAB PO SCH ×2 (08:00→17:52)
[2019-11-06 09:00] VITALS: BP 97/53
--- NOTE | 2019-11-06 10:00 | NUR ---
IV 22 GAUGE RFA PINK, SLIGHT ERYTHEMA AND EDEMA NOTED. PT REPORTS THE IV IS CAUSING HIM PAIN. IV DC'D, PRESSURE DRESSING APPLIED. NEW IV INSERTED ON SECOND ATTEMPT, USING STERILE TECHNIQUE, 22 G LH, FLUSHED WITH 0.9 NS. PT TOLERATED PROCEDURE WELL. DR WOODS SAW PATIENT AND DISCUSSED POC. REPORTS SHE WILL SPEAK WITH DR VERA AND SEE IF THE AMIO DRIP CAN BE DISCONTINUED, AND PATIENT MAY DC ON SUNDAY. PT AWARE.
--- NOTE | 2019-11-06 10:15 | NUR ---
PATIENT FINISHED DIALYSIS. DRUM SPRAYER REPORTS 1.6 LITERS TAKEN OFF. PT BP 128/53, HR 61. AM COREG HELD.
[2019-11-06] MEDS: cefTRIAXone 1GM/50ML D5W 50 ML IV SCH (10:21)
[2019-11-06] MEDS: ATORVASTATIN 20 MG TAB PO SCH (10:21)
[2019-11-06] MEDS: SACUBITRIL-VALSARTAN 24mg/26mg TAB PO SCH ×2 (10:21→22:53)
[2019-11-06] MEDS: AZITHROMYCIN 250 MG TAB PO SCH (10:31)
[2019-11-06] MEDS: CLOPIDOGREL BISULFATE 75 MG TAB PO SCH (10:31)
[2019-11-06] MEDS: PANTOPRAZOLE 40 MG TAB PO SCH (10:32)
[2019-11-06] MEDS: APIXABAN 5 MG TAB PO SCH ×2 (10:32→22:00)
--- NOTE | 2019-11-06 11:00 | NUR ---
Pt refused PT tx stating "I'm not going anywhere today." Addendum: 11/06/19 at 1212 by Moises Champion L TACKER Amended: Links added.
--- NOTE | 2019-11-06 12:23 | NUR ---
Pt reports other IV RFA is hurting. assessed IV site, erythema and slight edema noted, IV DC'D pressure dressing applied.
[2019-11-06] MEDS: AMIODARONE 450mg/250ml AE 250 ML IV SCH (12:27)
[2019-11-06 13:00] VITALS: BP 109/49
--- NOTE | 2019-11-06 14:36 | NUR ---
Nutrition Followup Note Wt 98.0 kg Pt reports appetite is off and on. Pt intake is adequate 11/02-11/03 per rn doc aeb pt po intake of 82%. Per RN doc pt to receive dialysis today 11/05. Est Energy needs BW 93 [id number] kcals (25-27 kcal/kgBW). Est Protein needs: 111-130 gms/day (1.2-1.4 gm/kgBW r/t HD). Will continue to monitor and reassess prn. Labs: BUN 58H, Creat 5.50H, GLuc 182H, Ca 8.1L, Alb 3.0L Skin: BS 20 low risk, full detail in rn WC doc BM: 3 11/02 per RN doc PES: Altered nutrition related lab values r.t current chronic medical condition aeb elev RFT A1C, mild hypoalb Comments 1) refer to CDE oN DC 2) continue current plan of care 3) consider nephro carb steady 1 carton bid if PO is low Expected Outcomes/Goals: pt will have improved labs F/u mod 3-5 days
[2019-11-06 17:00] VITALS: BP 108/47
[2019-11-06 17:53] VITALS: BP 108/47
--- NOTE | 2019-11-06 19:05 | NUR ---
RT NOTE PT WAS SEEN BY RT FOR PRN HHN TX ASSESSMENT. HR 62, RR 16, BS CLEAR/DIMINISHED, POX 99% ON 2L NASAL CANNULA. NO SOB OR DISTRESS NOTED. RI AWARE TO CALL IF TX NEEDED AT ANY TIME. NO PRN TX INDICATED NOR REQUESTED AT THIS TIME. CONT ORDERED Addendum: 11/06/19 at 1911 by Ruth Mendoza RT Amended: Links added.
[2019-11-06 22:00] VITALS: BP 115/62
--- NOTE | 2019-11-06 22:04 | NUR ---
EPITAXIS/HEMOPTYSIS PATIENT BLEW OUT HIS NOSE AND COUGH UP BLOODY SPUTUM. PATIENT IS CURRENTLY ON PLAVIX 75MG PO DAILY AND ELIQUIS 10MG PO BID. PAGESarah HOSPITALIST AWAITING CALL BACK. Addendum: 11/06/19 at 2233 by DENISE TORRES RN RN HOSPITALIST CALLED BACK NO NEW ORDERS GIVEN CONTINUE TO MONITOR PATIENT BLEEDING.
[2019-11-07] MEDS: AMIODARONE 450mg/250ml AE 250 ML IV SCH (01:22)
[2019-11-07 05:00] VITALS: BP 112/62
[2019-11-07] MEDS: InsuLIN REG 1unit/0.01ml Soln (100units/ml) SC SCH ×4 (05:56→22:10)
[2019-11-07] MEDS: ACCU-CHEK COMFORT CURVE STRIP VI SCH ×4 (05:56→22:03)
[2019-11-07 06:26] LABS: INR 1.55 (0.9-1.15); Partial Thromboplastin Time 37.3 sec (23.64-32.05)
--- NOTE | 2019-11-07 07:20 | NUR ---
PT. ASSESSED FOR PRN. MN. TX., NO RESP. DISTRESS OR SOB NOTED. PT. IS AWAKE ALERT AND ABLE TO FOLLOW COMMANDS. BS. ARE CLEAR AND DIMINISHED AT THE BASES. HR=62,RR=16, SP02=96% ON 2LPM NC. PRN. TX NOT INDICATED AT THIS TIME, NO TX. GIVEN. PT. IS AWARE HE MAY CALL IF NEEDED.
--- NOTE | 2019-11-07 07:56 | NUR ---
PT REPORTS LARGE BLOOD CLOT HE BLEW OUT OF HIS NOSE. ASSESSED CLOT, MODERATE SIZE BLOOD CLOT DARK RED NOTED ON WASH CLOTH. PT IS ON PLAVIX AND ELIQUIS. CALLED PBX AND PAGED DR WOODS, AWAITING CALL BACK. CALLED DR VERA TO SEE IF HE WANTS TO DC AMIODARONE DRIP, PER DR WOODS YESTERDAY, LEFT MESSAGE, AWAITING CALL BACK. Addendum: 11/07/19 at 0805 by DAMIR ADAMS RN ALSO REPORTED IN MESSAGE PT HAVING PVC'S.
[2019-11-07] MEDS: CARVEDILOL 12.5 MG TAB PO SCH ×2 (08:00→17:34)
--- NOTE | 2019-11-07 08:21 | NUR ---
SPOKE WITH DR VERA AT [facility], NOTIFIED PT HAVING PVC'S YESTERDAY AND TODAY. MD AWARE. ASKED MD IF HE WANTS TO DC AMIODARONE DRIP. REPORTS TO DC DRIP AND ORDERED 200 MG PO DAILY AMIODARONE. JERRELL FROM RADIOLOGY CALLED, SHE REPORTS PT NEEDS TO BE OFF PLAVIX AND ELIQUIS FOR 5 DAYS BEFORE A THORACENTESIS CAN BE DONE, WILL NOTIFY .
--- NOTE | 2019-11-07 08:25 | NUR ---
UNABLE TO DO THORACENTESIS TODAY DUE TO PT BEING ON ELIQUIS AND PLAVIX. SHAWNEE FATIMA AWARE.
[2019-11-07 09:00] VITALS: BP 109/50
[2019-11-07] MEDS: cefTRIAXone 1GM/50ML D5W 50 ML IV SCH (09:12)
[2019-11-07] MEDS: ATORVASTATIN 20 MG TAB PO SCH (09:23)
[2019-11-07] MEDS: SACUBITRIL-VALSARTAN 24mg/26mg TAB PO SCH ×2 (09:24→22:10)
[2019-11-07] MEDS: AZITHROMYCIN 250 MG TAB PO SCH (09:24)
[2019-11-07] MEDS: PANTOPRAZOLE 40 MG TAB PO SCH (09:24)
[2019-11-07] MEDS: CLOPIDOGREL BISULFATE 75 MG TAB PO SCH (09:24)
[2019-11-07] MEDS: APIXABAN 5 MG TAB PO SCH ×2 (09:25→22:00)
[2019-11-07] MEDS: AMIODARONE HCL 200 MG TAB PO SCH (09:26)
--- NOTE | 2019-11-07 10:09 | NUR ---
SPOKE WITH DR WOODS, NOTIFIED MD OF PT NOSE BLEED AND CLOT, AND THAT RADIOLOGY REPORTS THEY WILL NOT DO THORACENTESIS TODAY, MD AWARE, NEW ORDERS TO HOLD BLOOD THINNERS FOR TODAY AND TONIGHT.
[2019-11-07 13:00] VITALS: BP 113/63
--- NOTE | 2019-11-07 14:00 | NUR ---
PT DECLINED P.T. TODAY.
[2019-11-07 16:00] VITALS: BP 137/79
--- NOTE | 2019-11-07 18:36 | NUR ---
PATIENT REPORTS HE HAS NOT VOIDED ALL DAY. PALPATED PT BLADDER, BLADDER SOFT ON PALPATION. PT REPORTS NO PAIN ON PALPATION OR URGE TO VOID. PT REPORTS HE HASN'T DRANK MUCH ALL DAY. DID BLADDER SCAN, BLADDER SCAN SHOWS 165 MLS URINE IN BLADDER. ASKED PT IF HE COULD TRY AND VOID. PT AGREED. PT VOIDED 100 MLS ORANGE CLEAR URINE IN URINAL. PT REPORTS HE HAD NO DIFFICULTY VOIDING. WILL CONTINUE TO MONITOR.
--- NOTE | 2019-11-07 19:16 | NUR ---
CALLED [facility] AND PAGED HOSPITALIST TO NOTIFY HIM PT ONLY VOIDED 100 MLS TODAY, AWAITING CALL BACK. Addendum: 11/07/19 at 1938 by DAMIR ADAMS RN DISREGARD, PT ON DIALYSIS.
[2019-11-07 22:31] VITALS: BP 133/72
[2019-11-08] MEDS: ACCU-CHEK COMFORT CURVE STRIP VI SCH ×4 (05:32→22:15)
[2019-11-08 05:33] VITALS: BP 132/71
[2019-11-08] MEDS: InsuLIN REG 1unit/0.01ml Soln (100units/ml) SC SCH ×4 (05:34→22:14)
[2019-11-08] MEDS ORDERED: SODIUM CHL 0.9% 1000 ML BAG XX ONE (07:00)
--- NOTE | 2019-11-08 07:02 | NUR ---
OPENING SHIFT NOTE Assumed care of patient from fast food shift supervisor RN. Patient is alert and oriented x4, no signs of distress noted. Patient denies pain. He was updated on the plan of care and verbalized understanding. Patient is currently on oxygen at 2L/min via nasal cannula, saturation is 97%. Cane noted at bedside. Bed is locked, in the lowest position, side rails up x2 and call light is in reach. Patient was encouraged to call for assistance as needed.
[2019-11-08 07:12] LABS: Basophils # (auto) 0 10 ^3/uL (0-0.2); Basophils % (auto) 0.4 % (0.0-2.0); Eosinophils # (auto) 0.5 10 ^3/uL (0-0.8); Eosinophils % (auto) 4.6 % (0.0-7.0); Hemoglobin 12.4 g/dL (13.5-17.5); Lymphocytes # (auto) 0.6 10 ^3/uL (0.4-5.4); Lymphocytes % (auto) 5.4 % (10.0-50.0); Mean Corpuscular Hemoglobin 28.5 pg (28.0-32.0); Mean Corpuscular Hgb Conc. 31.8 g/dL (32.0-36.0); Mean Corpuscular Volume 89.7 fL (80.0-100.0); Monocytes # (auto) 0.9 10 ^3/uL (0-1.3); Monocytes % (auto) 8.8 % (0.0-12.0); Neutrophils # (auto) 8.5 10 ^3/uL (1.6-8.6); Neutrophils % (auto) 80.8 % (37.0-80.0); Platelet Count (auto) 188 10^3/uL (140-450); Red Blood Cells 4.35 10^6/uL (4.5-5.90); Red Cell Distribution Width 17.8 % (11.8-14.3); White Blood Cell 10.5 10^3/uL (4.4-10.8)
--- NOTE | 2019-11-08 07:15 | NUR ---
Respiratory note: PT IS SLEEPING COMFORTABLY.PRN MED NEB TX NOT INDICATED AT THIS TIME. HR 77, RR 16, SPO2 99% ON 2L NC, BS CLEAR. NO SIGNS OR SYMPTOMS OF RESPIRATORY DISTRESS NOTED.
[2019-11-08 07:33] LABS: INR 1.37 (0.9-1.15)
[2019-11-08] MEDS: CARVEDILOL 12.5 MG TAB PO SCH ×2 (08:00→18:10)
[2019-11-08] MEDS: cefTRIAXone 1GM/50ML D5W 50 ML IV SCH (08:35)
[2019-11-08] MEDS: MORPHINE SULF INJ 2 MG/ML SYRINGE 1ML IV PRN (08:36)
[2019-11-08 09:00] VITALS: BP 104/60
[2019-11-08] MEDS: AZITHROMYCIN 250 MG TAB PO SCH (09:36)
[2019-11-08] MEDS: ATORVASTATIN 20 MG TAB PO SCH (09:36)
[2019-11-08] MEDS: SACUBITRIL-VALSARTAN 24mg/26mg TAB PO SCH ×2 (09:36→22:05)
[2019-11-08] MEDS: PANTOPRAZOLE 40 MG TAB PO SCH (09:36)
[2019-11-08] MEDS: AMIODARONE HCL 200 MG TAB PO SCH (09:37)
[2019-11-08] MEDS: APIXABAN 5 MG TAB PO SCH ×2 (10:00→22:09)
--- NOTE | 2019-11-08 11:50 | NUR ---
AT BEDSIDE updated on patient status, junior of care was reviewed with the patient and he verbalized understanding. New orders to hold am eliquis, begin giving night dose and to resume plavix. New order to cancel radiology consult.
[2019-11-08] MEDS: CLOPIDOGREL BISULFATE 75 MG TAB PO SCH (12:02)
[2019-11-08 13:00] VITALS: BP 123/70
--- NOTE | 2019-11-08 15:00 | NUR ---
PT IS RECEIVING DIALYSIS. ATTEMPT P.T. TOMORROW.
--- NOTE | 2019-11-08 16:26 | NUR ---
DIALYSIS COMPLETE Per Dialysis nurse 3L removed Vitals: BP 127/66, HR 69
[2019-11-08 17:00] VITALS: BP 123/65
--- NOTE | 2019-11-08 17:10 | NUR ---
PATIENT MOVED TO 221A Accompanied by staff with all belongings. Bed is locked, in the lowest position, side rails up x2 and call light is in reach.
--- NOTE | 2019-11-08 18:50 | NUR ---
RT NOTE PT WAS SEEN BY RT FOR PRN HHN TX ASSESSMENT. PT STATES NO TX NEEDED AND KNOWS TO CALL IF TX NEEDED AT ANY TIME. HR 77, RR 16, BS CLEAR/DIM, POX 95% ON ROOM AIR. NO PRN TX INDICATED AT THIS TIME.CONT ORDERED Addendum: 11/08/19 at 1908 by Ruth Mendoza RT Amended: Links added.
[2019-11-08 20:15] VITALS: BP 123/65
[2019-11-08 22:04] VITALS: BP 96/54
[2019-11-09 05:00] VITALS: BP 101/51
[2019-11-09 05:49] LABS: Hematocrit 34.5 % (41.0-53.0); Hemoglobin 11.4 g/dL (13.5-17.5)
[2019-11-09 06:05] LABS: Potassium 4.1 mmol/L (3.5-5.1)
[2019-11-09 06:10] LABS: INR 1.5 (0.9-1.15)
[2019-11-09 06:11] LABS: Magnesium 2.7 mg/dL (1.6-2.6)
[2019-11-09] MEDS: InsuLIN REG 1unit/0.01ml Soln (100units/ml) SC SCH ×4 (06:33→21:59)
--- NOTE | 2019-11-09 07:18 | NUR ---
OPENING SHIFT NOTE Assumed care of patient from shift superintendent RN. Patient is alert and oriented x4, no signs of distress noted. Patient denies pain. He was updated on the plan of care and verbalized understanding. Patient is currently on oxygen at 2L/min via nasal cannula, saturation is 98%. Cane noted at bedside. Bed is locked, in the lowest position, side rails up x2 and call light is in reach. Patient was encouraged to call for assistance as needed.
[2019-11-09] MEDS: CARVEDILOL 12.5 MG TAB PO SCH ×2 (08:00→17:41)
[2019-11-09] MEDS: cefTRIAXone 1GM/50ML D5W 50 ML IV SCH (08:48)
[2019-11-09] MEDS: MORPHINE SULF INJ 2 MG/ML SYRINGE 1ML IV PRN ×3 (08:49→20:01)
[2019-11-09 09:10] VITALS: BP 104/63
--- NOTE | 2019-11-09 09:25 | NUR ---
AT BEDSIDE Updated on the patient status, plan of care discussed with patient and he verbalized understanding. New orders for ABG on room air, order read back and verified. Will input.
[2019-11-09] MEDS: ATORVASTATIN 20 MG TAB PO SCH (09:45)
[2019-11-09] MEDS: AMIODARONE HCL 200 MG TAB PO SCH (09:45)
[2019-11-09] MEDS: SACUBITRIL-VALSARTAN 24mg/26mg TAB PO SCH ×2 (09:45→21:49)
[2019-11-09] MEDS: APIXABAN 5 MG TAB PO SCH ×2 (09:45→21:47)
[2019-11-09] MEDS: CLOPIDOGREL BISULFATE 75 MG TAB PO SCH (09:46)
[2019-11-09] MEDS: PANTOPRAZOLE 40 MG TAB PO SCH (09:46)
[2019-11-09] MEDS: AZITHROMYCIN 250 MG TAB PO SCH (09:46)
--- NOTE | 2019-11-09 10:06 | NUR ---
IV insertion IV access obtained, via clean sterile technique by inserting 22 gauge catheter at LEFT forearm after 1 attempt. IV secured properly. No trauma to site. Patient tolerated well. IV removal IV DC'd to the left hand with sterile technique, catheter fully intact. Pressure dressing applied to site. Patient tolerated procedure well. Discharged with aftercare instructions per MD.
--- NOTE | 2019-11-09 10:25 | NUR ---
PHYSICAL THERAPY AT BEDSIDE/RT PAGED FOR ALEXEY
--- NOTE | 2019-11-09 11:50 | NUR ---
Patient refused insulin Patient blood sugar 169, patient stated he is not eating much and refused insulin. He was encouraged to eat lunch and educated on insulin. Patient verbalized understanding and still continues to refuse.
[2019-11-09] MEDS: ACCU-CHEK COMFORT CURVE STRIP VI SCH ×3 (11:53→21:51)
[2019-11-09 13:00] VITALS: BP 114/65
[2019-11-09 17:00] VITALS: BP 125/71
--- NOTE | 2019-11-09 19:35 | NUR ---
OPENING SHIFT NOTE Assumed care of patient. Patient is alert and oriented x4, no signs of distress noted. He was updated on the plan of care and verbalized understanding. Cane noted at bedside. Bed is locked, in the lowest position, side rails up x2 and call light is in reach. Patient was encouraged to call for assistance as needed.
[2019-11-09 21:00] VITALS: BP 140/73
[2019-11-10 04:30] VITALS: BP 131/73
[2019-11-10] MEDS: MORPHINE SULF INJ 2 MG/ML SYRINGE 1ML IV PRN ×3 (06:03→21:41)
[2019-11-10] MEDS: ACCU-CHEK COMFORT CURVE STRIP VI SCH ×4 (06:05→21:44)
[2019-11-10] MEDS: InsuLIN REG 1unit/0.01ml Soln (100units/ml) SC SCH ×4 (06:26→21:50)
[2019-11-10 06:53] LABS: INR 1.45 (0.9-1.15)
--- NOTE | 2019-11-10 07:35 | NUR ---
OPENING SHIFT NOTE Assumed care of patient, awake and alert. No s/s of distress or SOB noted. Patient denies pain. Updated on the POC and instructed to call for assistance as needed, patient verbalized understanding. Patient is currently on oxygen at 2L/min via nasal cannula, saturation is 99%. Bed is locked in the lowest position, side rails up x2 and call light is in reach. Patient was encouraged to call for assistance as needed.
[2019-11-10] MEDS: cefTRIAXone 1GM/50ML D5W 50 ML IV SCH (08:44)
[2019-11-10] MEDS: CARVEDILOL 12.5 MG TAB PO SCH ×2 (08:44→17:26)
[2019-11-10 09:17] VITALS: BP 135/76
[2019-11-10] MEDS: SACUBITRIL-VALSARTAN 24mg/26mg TAB PO SCH ×2 (09:49→21:41)
[2019-11-10] MEDS: ATORVASTATIN 20 MG TAB PO SCH (09:49)
[2019-11-10] MEDS: PANTOPRAZOLE 40 MG TAB PO SCH (09:49)
[2019-11-10] MEDS: AMIODARONE HCL 200 MG TAB PO SCH (09:50)
[2019-11-10] MEDS: AZITHROMYCIN 250 MG TAB PO SCH (09:50)
[2019-11-10] MEDS: CLOPIDOGREL BISULFATE 75 MG TAB PO SCH (09:54)
[2019-11-10] MEDS: APIXABAN 5 MG TAB PO SCH ×2 (09:54→21:37)
--- NOTE | 2019-11-10 11:10 | NUR ---
Respiratory note: PATIENT SEEN FOR ROOM AIR ABG PER DR. WOODS'S ORDER. ON ASSESSMENT PATIENT WAS NOTED TO HAVE JUST GOTTEN BACK FROM WALKING WITH PT, WAS ON ROOM AIR, AND SPO2 WAS 96%. SPOKE TO AKUA ALVAREZ AND INFORMED HER OF PATIENTS CURRENT VITALS AND THAT IT WAS NOT INDICATED TO DRAW ABG AT THIS TIME SPO2 WAS TOO HIGH TO QUALIFY. INFORMED AKUA ALVAREZ THAT I WOULD LEAVE PATIENT OFF OXYGEN AND ROUND ON HIM PERIODICALLY TO ASSESS SPO2 AND DRAW ABG WHEN IT DROPS, AND TO CALL ME IF IT DROPPED LOW PRIOR TO MY ARRIVAL. AKUA ALVAREZ AWARE TO LEAVE PATIENT OFF OXYGEN FOR TIME BEING.
--- NOTE | 2019-11-10 11:45 | NUR ---
Respiratory note: PATIENT REASSESSED FOR ROOM AIR ABG. PATIENT REMAINS OFF OXYGEN, HOWEVER, SPO2 MAINTAINS AT 96%. SPO2 REMAINS TOO HIGH TO QUALIFY FOR HOME OXYGEN SO ABG DRAW IS NOT INDICATED AT THIS TIME. PATIENT WAS LEFT OFF OXYGEN AND AKUA ALVAREZ WAS INFORMED OF CURRENT SPO2 AND NON DRAW OF ABG. WILL CONTINUE TO ATTEMPT TO DRAW GAS.
--- NOTE | 2019-11-10 12:17 | NUR ---
Nutrition Followup Note Wt 98.0 kg Pt reports appetite is not good d/t food not being what he wants. Pt intake is inadequate 11/07-11/08 aeb pt po intake of 59% per RN doc. Per RN doc pt received dialysis 11/07 Est Energy needs BW 93 [id number] kcals (25-27 kcal/kgBW). Est Protein needs: 111-130 gms/day (1.2-1.4 gm/kgBW r/t HD). Will continue to monitor and reassess prn. Labs: BUN 58H, Creat 5.50H, GLuc 159H, Ca 8.1L, Alb 3.0L Skin: BS 20 low risk, full detail in rn WC doc BM: 3 11/06 per RN doc PES: Altered nutrition related lab values r.t current chronic medical condition aeb elev RFT A1C, mild hypoalb Comments 1) refer to CDE oN DC 2) continue current plan of care 3) consider nephro carb steady 1 carton bid if PO is low Expected Outcomes/Goals: pt will have improved labs F/u mod 3-5 days
[2019-11-10] MEDS ORDERED: PHYTONADIONE(VitK) ORAL Susp 10mg/10ml(1mg/ml) PO ONE (12:30)
--- NOTE | 2019-11-10 15:00 | NUR ---
Assessment Patient is a 59-year-old male who is alert and oriented. Prior to admission patient lived with family and functioned independently. Patient can care for his own ADLs. Patient informed me he has a nebulizer for home use. Per patient he will return to his prior living arrangements post discharge and family will transport patient home. Advised patient there is a Social Service consult for home health safety evaluation, physical therapy, medication management and vitals. Per Patient he does not need any additional service stating he does not see how it will benefit him because he is very independent and can care for himself and has family support. Informed patient he has the right to participate in all discharge planning. Patient verbalized understanding and agreed to discharge plan home. Addendum: 11/11/19 at 0833 by OLEKSANDR MARRERO Amended: Links added.
[2019-11-10 15:08] VITALS: BP 126/75
[2019-11-10 22:00] VITALS: BP 109/59
[2019-11-11 05:00] VITALS: BP 107/59
[2019-11-11] MEDS: InsuLIN REG 1unit/0.01ml Soln (100units/ml) SC SCH ×4 (06:23→22:35)
[2019-11-11] MEDS: ACCU-CHEK COMFORT CURVE STRIP VI SCH ×4 (06:23→22:36)
[2019-11-11 07:00] LABS: INR 1.35 (0.9-1.15)
--- NOTE | 2019-11-11 07:15 | NUR ---
Closing note: Bed is in lowest locked position with bed rails up x2 and call light is within reach. Patient resting in bed with breaths even and unlabored. Care endorsed to day shift nurse.
--- NOTE | 2019-11-11 07:35 | NUR ---
OPENING SHIFT NOTE Assumed care of patient, awake and alert. No s/s of distress or SOB noted. Patient denies pain. Updated on the POC and instructed to call for assistance as needed, patient verbalized understanding. Patient is currently on oxygen at 2L/min via nasal cannula. Bed is locked in the lowest position, side rails up x2 and call light is in reach. Patient was encouraged to call for assistance as needed.
[2019-11-11] MEDS: CARVEDILOL 12.5 MG TAB PO SCH (08:00)
[2019-11-11 09:00] VITALS: BP 119/67
[2019-11-11] MEDS: ONDANSETRON HCL 4 MG/2 ML VIAL IV PRN (09:54)
[2019-11-11] MEDS: MORPHINE SULF INJ 2 MG/ML SYRINGE 1ML IV PRN ×3 (09:54→21:00)
[2019-11-11] MEDS ORDERED: APIXABAN 5 MG TAB PO SCH (10:00)
[2019-11-11] MEDS: ATORVASTATIN 20 MG TAB PO SCH (10:00)
[2019-11-11] MEDS: SACUBITRIL-VALSARTAN 24mg/26mg TAB PO SCH ×2 (10:00→22:34)
[2019-11-11] MEDS: PANTOPRAZOLE 40 MG TAB PO SCH (10:00)
[2019-11-11] MEDS: CLOPIDOGREL BISULFATE 75 MG TAB PO SCH (10:00)
--- NOTE | 2019-11-11 10:00 | NUR ---
SLIDE MACHINE TENDER AT BEDSIDE.
[2019-11-11] MEDS: AMIODARONE HCL 200 MG TAB PO SCH (10:56)
--- NOTE | 2019-11-11 11:00 | NUR ---
PT IS RECEIVING DIALYSIS. ATTEMPT P.T. LATER.
--- NOTE | 2019-11-11 12:09 | NUR ---
DIALYSIS COMPLETE 2L REMOVED, NO DISTRESS NOTED. VITALS STABLE AT THIS TIME. BP 120/52 HR 70. WILL CONTINUE TO MONITOR.
[2019-11-11 12:47] VITALS: BP 107/50
[2019-11-11] MEDS: FUROSEMIDE 40 MG TAB PO SCH (16:59)
[2019-11-11 17:00] VITALS: BP 113/64
--- NOTE | 2019-11-11 18:32 | NUR ---
PATIENT ROUNDS PATIENT IS AWAKE AND ALERT SITTING UP IN BED, RESPIRATIONS ARE EVEN AND UNLABORED. NO S/S OF DISTRESS. BED LOCKED IN LOWEST POSITION, SIDE RAILS UP, CALL LIGHT WITHIN REACH.
--- NOTE | 2019-11-11 19:15 | NUR ---
OPENING SHIFT NOTE: ASSUMED CARE OF PATIENT. PATIENT IS AWAKE, ALERT AND ORIENTED X 4. NO S/S OF SOB OR DISTRESS, RESPIRATIONS ARE EVEN AND UNLABORED, PATIENT DENIES PAIN. BED IS IN LOWEST, LOCKED POSITION WITH TWO SIDE RAILS RAISED AND CALL LIGHT WITHIN REACH. INSTRUCTED ON POC AND ENCOURAGED TO USE CALL LIGHT FOR ASSISTANCE, ALL QUESTIONS AND CONCERNS ADDRESSED, PATIENT VERBALIZES UNDERSTANDING. PATIENT CONNECTED TO TELE BOX #40 AND CURRENT READING IS 74 BPM. WILL CONTINUE TO MONITOR Q1 HR AND PRN.
[2019-11-11 20:00] VITALS: BP 120/65
[2019-11-11 22:00] VITALS: BP 120/65
[2019-11-11] MEDS: CARVEDILOL 3.125 MG TAB PO SCH (22:34)
[2019-11-12] MEDS: MORPHINE SULF INJ 2 MG/ML SYRINGE 1ML IV PRN ×3 (02:17→17:24)
[2019-11-12 05:00] VITALS: BP 110/60
[2019-11-12] MEDS: FUROSEMIDE 40 MG TAB PO SCH ×2 (05:59→17:15)
[2019-11-12] MEDS: InsuLIN REG 1unit/0.01ml Soln (100units/ml) SC SCH ×4 (06:29→22:20)
[2019-11-12] MEDS: ACCU-CHEK COMFORT CURVE STRIP VI SCH ×4 (06:29→22:09)
--- NOTE | 2019-11-12 07:40 | NUR ---
OPENING SHIFT NOTE Assumed care of patient, awake and alert. No s/s of distress or SOB noted. Patient reports acute right hand pain of 8/10 will medicate per MD orders. Updated on the POC and instructed to call for assistance as needed. Bed is locked in the lowest position, side rails up x2 and call light is in reach. Patient was encouraged to call for assistance as needed. Will continue to monitor q1hr and PRN for changes.
[2019-11-12 08:51] VITALS: BP 111/60
[2019-11-12] MEDS: SACUBITRIL-VALSARTAN 24mg/26mg TAB PO SCH ×2 (08:52→22:03)
[2019-11-12] MEDS: ATORVASTATIN 20 MG TAB PO SCH (08:52)
[2019-11-12] MEDS: PANTOPRAZOLE 40 MG TAB PO SCH (08:52)
[2019-11-12] MEDS: CARVEDILOL 3.125 MG TAB PO SCH ×2 (08:52→17:15)
[2019-11-12] MEDS: AMIODARONE HCL 200 MG TAB PO SCH (08:52)
[2019-11-12 12:32] VITALS: BP 115/62
[2019-11-12 16:44] VITALS: BP 113/59
--- NOTE | 2019-11-12 19:18 | NUR ---
Opening Shift Note Assumed care of patient, awake, alert and oriented x4, on 2L of oxygen via NC with even and unlabored respirations, no S/S of distress/SOB or pain. Patient able to ambulate independently with cane, bed in lowest locked position, side rails up x2, and call light within reach. Instructed on POC and to call for assist PRN, will continue to monitor for changes Q1hr and PRN.
[2019-11-12 21:31] VITALS: BP 101/56
[2019-11-13 05:21] VITALS: BP 123/67
[2019-11-13] MEDS: ACCU-CHEK COMFORT CURVE STRIP VI SCH ×4 (06:10→21:30)
[2019-11-13] MEDS: FUROSEMIDE 40 MG TAB PO SCH ×2 (06:10→17:11)
[2019-11-13] MEDS: InsuLIN REG 1unit/0.01ml Soln (100units/ml) SC SCH ×4 (06:16→21:32)
[2019-11-13 06:26] LABS: BUN/Creatinine Ratio 7.4
[2019-11-13] MEDS: MORPHINE SULF INJ 2 MG/ML SYRINGE 1ML IV PRN ×2 (06:38→11:19)
[2019-11-13 06:41] LABS: Basophils # (auto) 0.1 10 ^3/uL (0-0.2); Eosinophils # (auto) 0.4 10 ^3/uL (0-0.8); Eosinophils % (auto) 4.8 % (0.0-7.0); Hematocrit 37.3 % (41.0-53.0); Hemoglobin 12.1 g/dL (13.5-17.5); Lymphocytes # (auto) 0.7 10 ^3/uL (0.4-5.4); Lymphocytes % (auto) 9.2 % (10.0-50.0); Mean Corpuscular Hemoglobin 28.7 pg (28.0-32.0); Mean Corpuscular Hgb Conc. 32.5 g/dL (32.0-36.0); Mean Corpuscular Volume 88.2 fL (80.0-100.0); Monocytes # (auto) 0.9 10 ^3/uL (0-1.3); Monocytes % (auto) 11.5 % (0.0-12.0); Neutrophils # (auto) 5.6 10 ^3/uL (1.6-8.6); Neutrophils % (auto) 73.5 % (37.0-80.0); Nucleated Red Blood Cells % 0.1 %; Platelet Count (auto) 203 10^3/uL (140-450); Red Blood Cells 4.23 10^6/uL (4.5-5.90); Red Cell Distribution Width 17.1 % (11.8-14.3); White Blood Cell 7.6 10^3/uL (4.4-10.8)
[2019-11-13] MEDS ORDERED: SODIUM CHL 0.9% 1000 ML BAG XX ONE (07:30)
[2019-11-13] MEDS: CARVEDILOL 3.125 MG TAB PO SCH ×2 (08:00→17:07)
--- NOTE | 2019-11-13 08:00 | NUR ---
Opening Shift Note Assumed care of patient, awake, alert, and oriented. Patient receiving dialysis. No S/S of distress/SOB or pain. Bed in lowest/locked position, bed rails up x2, call light within reach. Instructed on POC and to call for assist PRN. Will continue to monitor for changes Q1hr and PRN.
[2019-11-13] MEDS: ONDANSETRON HCL 4 MG/2 ML VIAL IV PRN (08:24)
[2019-11-13 09:00] VITALS: BP 116/62
--- NOTE | 2019-11-13 10:40 | NUR ---
DIALYSIS DIALYSIS FINISHED. PER [facility] CLIENT ADVOCATE, PATIENT HAD 2L REMOVED. B/P 100/46, HR 64BPM. PATIENT TOLERATED WELL. WILL CONTINUE TO MONITOR
[2019-11-13] MEDS: AMIODARONE HCL 200 MG TAB PO SCH (11:08)
[2019-11-13] MEDS: PANTOPRAZOLE 40 MG TAB PO SCH (11:08)
[2019-11-13] MEDS: SACUBITRIL-VALSARTAN 24mg/26mg TAB PO SCH ×2 (11:09→21:30)
[2019-11-13] MEDS: ATORVASTATIN 20 MG TAB PO SCH (11:09)
[2019-11-13 13:00] VITALS: BP 104/56
[2019-11-13] MEDS ORDERED: APIX2.5T PO (13:08)
[2019-11-13] MEDS ORDERED: CARV6.25 PO (13:08)
[2019-11-13] MEDS ORDERED: SACU1TAB PO (13:08)
[2019-11-13] MEDS ORDERED: AMIO200T4 PO (13:08)
--- NOTE | 2019-11-13 13:30 | NUR ---
PT DECLINED P.T. TODAY. PT VERY FATIGUED FROM DIALYSIS.
--- NOTE | 2019-11-13 16:22 | NUR ---
Nutrition Followup Note Wt 89.5 kg Pt was awake with no relatives at bedside when rounded this morning. Pt appetite is improved, and is good aeb ave 83% PO intake over 3 meals. Pt noted no distress or complaints. Will continue to closely monitor pertinent labs, PO intake and skin status prn. Will followup in 3-5 days Est Energy needs BW 93 [id number] kcals (25-27 kcal/kgBW). Est Protein needs: 111-130 gms/day (1.2-1.4 gm/kgBW r/t HD). Will continue to monitor and reassess prn. Labs: BUN 48 H, Creat 6.51 H, GFR 9 L, GLuc 153 H, Na 135 L, Alb 3.0 L Skin: BS 20 low risk, full detail in rn WC doc BM: Pt last BM : 1 on 11/11 per RN doc PES: Altered nutrition related lab values r.t current chronic medical condition aeb elev RFT A1C, mild hypoalb Comments 1) refer to CDE on DC 2) continue current plan of care 3) consider nephro carb steady 1 carton bid if PO is low Expected Outcomes/Goals: pt will have improved labs F/u mod 3-5 days
[2019-11-13 17:00] VITALS: BP 93/58
--- NOTE | 2019-11-13 21:00 | NUR ---
DISCHARGE [facility] RECEIVED CALL FROM MICHAEL AT [facility] REGARDING PALLIATIVE SERVICES FOR PATIENT AFTER DISCHARGE. SHE WOULD LIKE TO BE CONTACTED UPON DISCHARGE FOR PLANNING OF PALLIATIVE CARE. PHONE NUMBER: [phone] FAX: [phone]
[2019-11-13 23:17] VITALS: BP 106/59
[2019-11-14 05:23] VITALS: BP 106/59
[2019-11-14 06:36] LABS: INR 1.13 (0.9-1.15)
[2019-11-14] MEDS: FUROSEMIDE 40 MG TAB PO SCH (06:38)
[2019-11-14] MEDS: ACCU-CHEK COMFORT CURVE STRIP VI SCH ×2 (06:47→11:02)
[2019-11-14] MEDS: InsuLIN REG 1unit/0.01ml Soln (100units/ml) SC SCH ×2 (06:50→11:03)
--- NOTE | 2019-11-14 08:00 | NUR ---
Opening Shift Note Assumed care of patient, awake, alert, and oriented. No S/S of distress/SOB or pain. Bed in lowest/locked position, bed rails up x2, call light within reach. Instructed on POC and to call for assist PRN. Will continue to monitor for changes Q1hr and PRN.
[2019-11-14 08:38] VITALS: BP 140/65
--- NOTE | 2019-11-14 09:13 | NUR ---
OFF UNIT PATIENT TAKEN TO RADIOLOGY FOR PROCEDURE. NO S/S OF DISTRESS/SOB OR C/O PAIN AT TIME PF TRANSFER
--- NOTE | 2019-11-14 09:30 | NUR ---
PT WENT DOWN FOR PROCEDURE. ATTEMPT P.T. LATER.
[2019-11-14] MEDS ORDERED: fentaNYL CITRATE 100 MCG/2 ML VL IV ONE (09:45)
[2019-11-14] MEDS ORDERED: MIDAZOLAM HCL 1MG/1ML-2 ML VIAL IV ONE (09:45)
--- NOTE | 2019-11-14 09:45 | NUR ---
THORACENTESIS COMPLETED BY DR JEWELL IN ULTRASOUND. PT TOLERATED PROCEDURE WELL. VSS 115/70-72-17-97%. 1300 ML OF PLEURAL FLUID REMOVED AND SENT TO LAB
--- NOTE | 2019-11-14 09:55 | NUR ---
ON UNIT PATIENT RETURNED TO UNIT FROM RADIOLOGY. NO S/S OF DISTRESS, SOB. C/O PAIN 01/11. WILL MEDICATE PER MD ORDERS
[2019-11-14] MEDS: PANTOPRAZOLE 40 MG TAB PO SCH (10:11)
[2019-11-14] MEDS: AMIODARONE HCL 200 MG TAB PO SCH (10:11)
[2019-11-14] MEDS: SACUBITRIL-VALSARTAN 24mg/26mg TAB PO SCH (10:11)
[2019-11-14] MEDS: ATORVASTATIN 20 MG TAB PO SCH (10:11)
[2019-11-14] MEDS: MORPHINE SULF INJ 2 MG/ML SYRINGE 1ML IV PRN (10:12)
[2019-11-14] MEDS: CARVEDILOL 3.125 MG TAB PO SCH (10:12)
--- NOTE | 2019-11-14 10:38 | NUR ---
ROUNDS DR SANCHEZ INSTRUCTING PATIENT ON POC. NEW ORDERS RECEIVED/WILL CARRY OUT. WILL CONTINUE TO MONITOR
--- NOTE | 2019-11-14 11:20 | NUR ---
RT NOTE: WENT TO PTS ROOM FOR ROOM AIR ABG. PT WAS ON 3L NC. PT TAKEN OFF OF OXYGEN AT THIS TIME SPO2 100%. CAME BACK AT 1139- SPO2 95% ON RA 1150- SPO2 94% ON RA 1300- SPO2 97% ON RA NO INDICATION TO DRAW ABG RN MADE AWARE. WILL CONTINUE TO MONITOR PT.
[2019-11-14 12:39] VITALS: BP 112/64
--- NOTE | 2019-11-14 15:50 | NUR ---
DIALYSIS RECEIVED CALL FROM DR AMADOR RE: PATIENT DIALYSIS. PER MD; PATIENT NEEDS TO GET DIALYZED Sunday11/15/2019 AT 3 PM AND THEN TO RESUME NORMAL DIALYSIS APPOINTMENTS. INFORMED PATIENT AND ADDED TO DISCHARGE PAPERWORK
--- NOTE | 2019-11-14 16:18 | NUR ---
Discharge instructions given as ordered. Encourage to follow up with PMD as instructed. All questions and concerns addressed. Patient verbalized understanding. IV removed with catheter intact, pressure dressing applied. Telemetry unit returned to ICU. Patient taken to vehicle via wheelchair with all personal belongings, accompanied by staff. No distress noted at time of departure.
== END 2019-11-14 16:20 | disposition home or self-care (01) | DRG 193 ==
LOC: ER 17:02 → EDBD 17:02 → TELE-EAST 17:03 → TELE-CENTR 10-31 02:03
PROVIDERS: ADMIT Hospitalist; ATTEND Internal Medicine
PROC: 5A1D70Z Performance of Urinary Filtration, Intermittent, Less than 6 Hours Per Day (ICD-10-PCS; 2019-11-02)
PROC: 5A1D70Z Performance of Urinary Filtration, Intermittent, Less than 6 Hours Per Day (ICD-10-PCS; 2019-11-04)
PROC: 5A1D70Z Performance of Urinary Filtration, Intermittent, Less than 6 Hours Per Day (ICD-10-PCS; principal; 2019-11-06)
PROC: 5A1D70Z Performance of Urinary Filtration, Intermittent, Less than 6 Hours Per Day (ICD-10-PCS; 2019-11-08)
PROC: 5A1D70Z Performance of Urinary Filtration, Intermittent, Less than 6 Hours Per Day (ICD-10-PCS; 2019-11-11)
PROC: 5A1D70Z Performance of Urinary Filtration, Intermittent, Less than 6 Hours Per Day (ICD-10-PCS; 2019-11-13)
PROC: 0W993ZZ Drainage of Right Pleural Cavity, Percutaneous Approach (ICD-10-PCS; 2019-11-14)
DX: I33.0 Acute and subacute infective endocarditis (principal); I26.99 Other pulmonary embolism without acute cor pulmonale; I21.4 Non-ST elevation (NSTEMI) myocardial infarction; J96.01 Acute respiratory failure with hypoxia; J18.9 Pneumonia, unspecified organism; E44.0 Moderate protein-calorie malnutrition; I13.2 Hypertensive heart and chronic kidney disease with heart failure and with stage 5 chronic kidney disease, or end stage renal disease; J91.8 Pleural effusion in other conditions classified elsewhere; I50.43 Acute on chronic combined systolic (congestive) and diastolic (congestive) heart failure; N18.6 End stage renal disease; N17.9 Acute kidney failure, unspecified; E66.01 Morbid (severe) obesity due to excess calories; I27.20 Pulmonary hypertension, unspecified; I25.10 Atherosclerotic heart disease of native coronary artery without angina pectoris; D63.8 Anemia in other chronic diseases classified elsewhere; E11.65 Type 2 diabetes mellitus with hyperglycemia; I25.5 Ischemic cardiomyopathy; I48.91 Unspecified atrial fibrillation; I80.8 Phlebitis and thrombophlebitis of other sites; E78.5 Hyperlipidemia, unspecified; E87.1 Hypo-osmolality and hyponatremia; R00.1 Bradycardia, unspecified; E11.22 Type 2 diabetes mellitus with diabetic chronic kidney disease; Z99.2 Dependence on renal dialysis; Z20.828 Contact with and (suspected) exposure to other viral communicable diseases; Z68.27 Body mass index [BMI] 27.0-27.9, adult; I25.2 Old myocardial infarction; Z79.02 Long term (current) use of antithrombotics/antiplatelets; Z82.49 Family history of ischemic heart disease and other diseases of the circulatory system; Z82.5 Family history of asthma and other chronic lower respiratory diseases; Z83.3 Family history of diabetes mellitus; Z85.038 Personal history of other malignant neoplasm of large intestine; Z86.73 Personal history of transient ischemic attack (TIA), and cerebral infarction without residual deficits; Z87.891 Personal history of nicotine dependence; Z95.5 Presence of coronary angioplasty implant and graft; Z90.49 Acquired absence of other specified parts of digestive tract; Z95.810 Presence of automatic (implantable) cardiac defibrillator; Z79.899 Other long term (current) drug therapy; Z79.4 Long term (current) use of insulin
CPT/HCPCS: 10022; 32555; 36415; 36600; 71045; 71275; 76604; 76942; 80048; 80053; 81001; 82247; 82570; 82728; 82805; 82962; 83036; 83605; 83615; 83735; 83880; 83986; 84100; 84132; 84156; 84300; 84443; 84484; 85014; 85018; 85025; 85379; 85610; 85730; 86141; 87040; 87070; 87081; 87205; 87804; 87880; 89051; 90935; 93005; 93306; 93970; 93971; 94640; 97116; 97163; 97530; 99291; G0378; J0696; J0885; J1642; J1815; J2405; J7060

== ENCOUNTER 2020-04-07 07:12 | Inpatient (IN) | payer OTHER ==
[~2020-04-07] VITALS: Ht 177.8 cm; Wt 97.3 kg
[~2020-04-07 07:12] MED LIST changes: +AMIO200T4 PO; +APIX2.5T PO; -ASPI-543 PO; -CAR125T PO; +CARV6.25 PO; +SACU1TAB PO
[2020-04-07 08:40] LABS: Basophils # (auto) 0.1 10 ^3/uL (0-0.2); Basophils % (auto) 0.8 % (0.0-2.0); Eosinophils # (auto) 0.2 10 ^3/uL (0-0.8); Eosinophils % (auto) 2.9 % (0.0-7.0); Hematocrit 36.3 % (41.0-53.0); Hemoglobin 11.9 g/dL (13.5-17.5); Lymphocytes # (auto) 0.3 10 ^3/uL (0.4-5.4); Lymphocytes % (auto) 3.4 % (10.0-50.0); Mean Corpuscular Hemoglobin 28.7 pg (28.0-32.0); Mean Corpuscular Hgb Conc. 32.6 g/dL (32.0-36.0); Mean Corpuscular Volume 87.8 fL (80.0-100.0); Monocytes # (auto) 0.5 10 ^3/uL (0-1.3); Monocytes % (auto) 6.2 % (0.0-12.0); Neutrophils # (auto) 7.3 10 ^3/uL (1.6-8.6); Neutrophils % (auto) 86.7 % (37.0-80.0); Nucleated Red Blood Cells % 0.1 %; Platelet Count (auto) 267 10^3/uL (140-450); Red Blood Cells 4.14 10^6/uL (4.5-5.90); Red Cell Distribution Width 17.4 % (11.8-14.3); White Blood Cell 8.5 10^3/uL (4.4-10.8)
[2020-04-07 08:57] LABS: Albumin 2.9 g/dL (3.4-5.0); Calcium 8.6 mg/dL (8.5-10.1); Potassium 4.4 mmol/L (3.5-5.1)
[2020-04-07 09:02] LABS: BUN/Creatinine Ratio 9.3; Bilirubin, Total 1.4 mg/dL (0.2-1.0)
[2020-04-07] MEDS ORDERED: ONDANSETRON HCL 4 MG/2 ML VIAL IV ONE (12:30)
[2020-04-07 13:00] LABS: CRP High Sensitivity 1.33 mg/dL (< 0.3)
[2020-04-07] MEDS ORDERED: ACETAMINOPHEN 500 MG TAB PO PRN (13:15)
[2020-04-07] MEDS ORDERED: NITROGLYCERIN 0.4 MG SL TAB SL PRN (13:15)
[2020-04-07] MEDS ORDERED: ONDANSETRON HCL 4 MG/2 ML VIAL IV PRN (13:15)
[2020-04-07] MEDS ORDERED: BUMETANIDE 2.5mg/10ml (0.25 mg/ml) INJ IV ONE (13:15)
[2020-04-07] MEDS ORDERED: DEXTROSE (50%) 50ML SYRG IV PRN (13:15)
[2020-04-07] MEDS ORDERED: MORPHINE SULF INJ 2 MG/ML SYRINGE 1ML IV PRN (13:15)
[2020-04-07 15:35] LABS: INR 1.3 (0.9-1.15); Partial Thromboplastin Time 27.3 sec (23.0-31.2)
[2020-04-07 17:00] VITALS: BP 98/66
[2020-04-07] MEDS: ACCU-CHEK COMFORT CURVE STRIP VI SCH ×2 (17:23→22:08)
[2020-04-07] MEDS: InsuLIN REG 1unit/0.01ml Soln (100units/ml) SC SCH ×2 (17:27→22:16)
--- NOTE | 2020-04-07 18:55 | NUR ---
Patient to transfer to 290A with RN MAHIN. Patient to transfer after shift change. Report to be given to night nurse at new room.
--- NOTE | 2020-04-07 18:59 | NUR ---
Called maycol calzada to give report, patient is moving to room 290A after shift change. Nurse getting report from other nurse at this time.
--- NOTE | 2020-04-07 19:30 | NUR ---
Transfer in from [facility]. BRIDGETBRIAN admitted to Telemetry unit after SBAR received from Vianca FATIMA. Patient oriented to Griffin healy RN, [facility] unit, 290 room, A bed, and unit policies regarding patient care and visiting hours. Patient now on continuous telemetry monitoring, tele box #11 and telemetry reading on arrival to unit is sinus rhythm. Patient placed on bedside oxygen, weighed by bedscale and encouraged to call if they need something. All questions and concerns addressed, patient verbalized understanding. Addendum: 04/08/20 at 0056 by Griffin Ordonez RN Life vest in place.
--- NOTE | 2020-04-07 19:30 | NUR ---
report given to Griffin RN, patient vitals stable, PM shift nurse transferring patient to new room, 290A. patient A&O x4 at time of tx, no s/s of distress, patient is agreeable to transfer.
--- NOTE | 2020-04-07 21:50 | NUR ---
Paged hospitalist to notify of patient requesting breathing treatments, the same he gets at home. patient states "i take albuterol treatments every 6 hours, as needed when i am at home". awaiting call back or orders.
[2020-04-07] MEDS: ATORVASTATIN 20 MG TAB PO SCH (22:06)
[2020-04-07] MEDS: CARVEDILOL 3.125 MG TAB PO SCH (22:06)
[2020-04-07] MEDS: SACUBITRIL-VALSARTAN 24mg/26mg TAB PO SCH (22:06)
--- NOTE | 2020-04-07 22:30 | NUR ---
Received order for albuteral 2.5 mg neb q8 prn from hospitalist Montez, verbally readback and confirmed with Montez hospitalist. will carry out.
[2020-04-07] MEDS: ALBUTEROL SULF 2.5 MG/0.5ML(0.5%) NEB SOLN NEB PRN (23:26)
[2020-04-08] VITALS (7 sets, daily range): BP systolic 105–120; BP diastolic 57–78
[2020-04-08] MEDS: MORPHINE SULF INJ 2 MG/ML SYRINGE 1ML IV PRN ×6 (00:22→23:33)
[2020-04-08] MEDS: ACCU-CHEK COMFORT CURVE STRIP VI SCH ×4 (06:36→21:24)
[2020-04-08] MEDS: InsuLIN REG 1unit/0.01ml Soln (100units/ml) SC SCH ×4 (06:36→21:24)
[2020-04-08] MEDS: ALBUTEROL SULF 2.5 MG/0.5ML(0.5%) NEB SOLN NEB PRN ×2 (06:37→21:27)
[2020-04-08] MEDS: SACUBITRIL-VALSARTAN 24mg/26mg TAB PO SCH ×2 (09:39→21:18)
[2020-04-08] MEDS: PANTOPRAZOLE 40 MG TAB PO SCH (09:39)
[2020-04-08] MEDS: AMIODARONE HCL 200 MG TAB PO SCH (09:40)
[2020-04-08] MEDS: CARVEDILOL 3.125 MG TAB PO SCH ×2 (09:40→21:19)
[2020-04-08] MEDS ORDERED: FAMOTIDINE 20 MG TAB PO SCH (10:00)
--- NOTE | 2020-04-08 10:15 | NUR ---
Dr. Barba at bedside for Cardiology Consult. Possible AICD placement tomorrow, Sunday. Dr. Barba made aware patient for possible Thoracentesis.
--- NOTE | 2020-04-08 10:25 | NUR ---
Called patient's Heidy Jerome ([phone]) when was the last time patient took the blood thinner Plavix 75 mg. Heidy said patient took Plavix on 2019.
--- NOTE | 2020-04-08 10:36 | NUR ---
Tyron Paniagua ([phone]) called back. Arcelia said Dr. Colmenares will proceed doing Thoracentesis today even if patient had Plavix and Eliquis at home on 2019.
--- NOTE | 2020-04-08 11:00 | NUR ---
Peng Mcfadden at bedside for Thoracentesis.
[2020-04-08] MEDS: HYDROcodone-ACET 5/325MG TAB PO PRN (11:35)
--- NOTE | 2020-04-08 11:45 | NUR ---
Called Radiology. Spoke w/ Arcelia if it's okay w/ Dr. Colmenares to have the patient take the Plavix ordered by Dr. Barba today, the patient just had Thoracentesis. Arcelia said patient can have Plavix as per Dr. Colmenares.
[2020-04-08] MEDS: CLOPIDOGREL BISULFATE 75 MG TAB PO SCH (12:05)
--- NOTE | 2020-04-08 14:00 | NUR ---
Dr. Solis came over. made aware Dr. Barba put a Communication Order: consent for Implantation of AICD defibrillator w/ Dr. Solis on 2019 @ [address] Solis made aware patient had Plavix today as ordered by Dr. Barba. Dr. Solis said Plavix should not have been given, he will take care of it. also made aware patient had Thoracentesis done today. Charge Nurse Scout made aware.
--- NOTE | 2020-04-08 14:07 | NUR ---
Dr. Ni at bedside. made aware patient had Thoracentesis done today by Dr. Colmenares; Dr. Barba has Communication Order for AICD defibrillator placement tomorrow w/ Dr. Solis; patient received Plavix today as ordered by Dr. Barba. Dr. Ni said hold the Plavix, Aspirin if any tonight and tomorrow.
--- NOTE | 2020-04-08 17:43 | NUR ---
Paged RT for breathing treatment PRN.
--- NOTE | 2020-04-08 19:00 | NUR ---
Endorsed patient to AKUA Moya that Dr. Solis has to be informed of PTPTT results for 2000 pm tonight; patient for AICD Defibrillator insertion tomorrow at 0730 am; NPO after midnight; no blood thinners. Patient had Thoracentesis done today.
[2020-04-08 20:18] LABS: INR 1.41 (0.9-1.15); Partial Thromboplastin Time 29.1 sec (23.0-31.2)
--- NOTE | 2020-04-08 20:30 | NUR ---
Communicated results to Dr Solis as ordered in communication order. MD aware of results of coagulation studies: pt/INR/APTT (previous and current results). MD Solis said no surgical procedure in the morning, and to keep patient NPO after midnight. Will continue to monitor patient.
[2020-04-08] MEDS: ATORVASTATIN 20 MG TAB PO SCH (21:18)
[2020-04-08 21:28] LABS: Urine Bacteria NONE SEEN /hpf (None Seen); Urine Blood Negative /uL (Negative); Urine Hyaline Cast MOD /lpf (0 - 2); Urine Mucus FEW (None Seen); Urine Specific Gravity 1.017 (1.001-1.035); Urine Sperm PRESENT /hpf (None Seen); Urine WBC 4 /hpf (0 - 3)
[2020-04-09 05:00] VITALS: BP 117/63
[2020-04-09] MEDS: MORPHINE SULF INJ 2 MG/ML SYRINGE 1ML IV PRN ×3 (06:08→22:48)
[2020-04-09] MEDS: ACCU-CHEK COMFORT CURVE STRIP VI SCH ×4 (06:10→22:48)
[2020-04-09] MEDS: InsuLIN REG 1unit/0.01ml Soln (100units/ml) SC SCH ×4 (06:10→22:00)
[2020-04-09 07:23] LABS: Basophils # (auto) 0.1 10 ^3/uL (0-0.2); Basophils % (auto) 0.9 % (0.0-2.0); Eosinophils # (auto) 0.4 10 ^3/uL (0-0.8); Eosinophils % (auto) 5.6 % (0.0-7.0); Hematocrit 34.9 % (41.0-53.0); Hemoglobin 11.4 g/dL (13.5-17.5); Lymphocytes # (auto) 0.3 10 ^3/uL (0.4-5.4); Lymphocytes % (auto) 3.8 % (10.0-50.0); Mean Corpuscular Hemoglobin 28.4 pg (28.0-32.0); Mean Corpuscular Hgb Conc. 32.6 g/dL (32.0-36.0); Mean Corpuscular Volume 87.1 fL (80.0-100.0); Monocytes # (auto) 0.5 10 ^3/uL (0-1.3); Monocytes % (auto) 6.5 % (0.0-12.0); Neutrophils # (auto) 6.6 10 ^3/uL (1.6-8.6); Neutrophils % (auto) 83.2 % (37.0-80.0); Nucleated Red Blood Cells % 0.1 %; Platelet Count (auto) 274 10^3/uL (140-450); Red Blood Cells 4.01 10^6/uL (4.5-5.90); Red Cell Distribution Width 16.9 % (11.8-14.3)
--- NOTE | 2020-04-09 07:24 | NUR ---
Respiratory note: PT IS AWAKE, AND ALERT. NO RESPIRATORY DISTRESS NOTED. SPO2 97% ON 2L NC,HR 82, RR 16, BS CLEAR BILATERALLY. PRN MEDNEB TX NOT INDICATED AT THIS TIME. PT INFORMED TO PUSH CALL BUTTON IF INCREASED WOB, SOB, OR WHEEZING OCCURS. WILL CONTINUE TO MONITOR PT.
--- NOTE | 2020-04-09 07:30 | NUR ---
Opening Shift Note RECEIVED REPORT FROM NOC RN. Assumed care of patient, awake and alert. PATIENT ON OXYGEN AT 2 LPM VIA NASAL CANNULA WITH no S/S of distress/SOB or pain. BED IN LOWEST, LOCKED POSITION WITH SIDERAILS UP x2 AND CALL LIGHT WITHIN REACH. Instructed on POC and to call for assist PRN, will continue to monitor for changes Q1hr and PRN.
[2020-04-09 07:36] LABS: BUN/Creatinine Ratio 11.5; Calcium 8.4 mg/dL (8.5-10.1); Potassium 4.9 mmol/L (3.5-5.1)
[2020-04-09 07:42] LABS: Albumin 2.6 g/dL (3.4-5.0); Bilirubin, Direct 0.8 mg/dL (0-0.2)
--- NOTE | 2020-04-09 07:43 | NUR ---
PROVIDED REPORT TO DAY AKUA MAHAN. ENDORSED TO AKUA MAHAN POSSIBLE HEART PROCEDURE WITH DR REBOLLEDO TODAY, PROCEDURE HELD IN AM AND PATIENT IS STILL NPO. PATIENT HAS HAD CHG WIPES APPLIED AND NEW BED LINEN CHANGED. Addendum: 04/09/20 at 0745 by Griffin Ordonez RN AND TO HOLD ANTICOAGULANTS MEDS, AND FOLLOW UP ON COMMUNICATIONS ORDERS.
[2020-04-09 07:45] LABS: Bilirubin, Total 1.5 mg/dL (0.2-1.0); Total Protein 6.1 g/dL (6.4-8.2)
--- NOTE | 2020-04-09 08:00 | NUR ---
PATIENT TAKEN TO [employer] SALES AGENT BY [employer] SALES AGENT PERSONNEL.
[2020-04-09] MEDS ORDERED: VANCOMYCIN 1GM/250ML 250 ML IV ONE (08:14)
[2020-04-09] MEDS ORDERED: MIDAZOLAM HCL 1MG/1ML-2 ML VIAL ONE (08:14)
[2020-04-09] MEDS ORDERED: VANCOMYCIN HCL 1000 MG VL ONE (08:14)
[2020-04-09] MEDS ORDERED: fentaNYL CITRATE 100 MCG/2 ML VL ONE (08:14)
[2020-04-09] MEDS ORDERED: LIDOCAINE 2%HCL (LOCAL ANESTH.) INJ 20ML MDV ONE (08:15)
[2020-04-09] MEDS ORDERED: diphenhdrAMINE HCL 50 MG/1 ML VL ONE (08:34)
[2020-04-09] MEDS ORDERED: FUROSEMIDE 20 MG/2 ML VIAL ONE (08:42)
--- NOTE | 2020-04-09 09:06 | NUR ---
Patient brought to recovery via bed, report received from AKUA Nunn. Patient is AO x 4, no s/s of distress/SOB and denies pain at this time. Left upper chest site has a safeguard dressing in place CDI, no s/s of bleeding or hematoma formation. Ice pack applied to site, arm immobilizer in place to left arm. Patient verbalized understanding to post-procedure care instructions.
--- NOTE | 2020-04-09 09:15 | NUR ---
EKG obtained and placed in patient's chart. Radiology is currently present at bedside for CXR.
--- NOTE | 2020-04-09 09:21 | NUR ---
Patient resting in bed with eyes closed. NAD noted Left upper chest site remains unchanged.
--- NOTE | 2020-04-09 09:55 | NUR ---
Report given to primary RN, Long.
[2020-04-09] MEDS: CLOPIDOGREL BISULFATE 75 MG TAB PO SCH (10:00)
--- NOTE | 2020-04-09 10:08 | NUR ---
Patient taken to telemetry unit via bed by this RN and german Hilliard. NAD noted upon departure, induction heating equipment setter in place. Primary RN, Long present at bedside to witness left upper chest site benign, dressing is CDI. Bed is set in lowest locked position with side rails up x 2, call light is within reach and bed alarm set on for safety. Care endorsed to AKUA Alves.
[2020-04-09] MEDS: AMIODARONE HCL 200 MG TAB PO SCH (10:37)
[2020-04-09] MEDS: CARVEDILOL 3.125 MG TAB PO SCH ×2 (10:38→23:08)
[2020-04-09] MEDS: PANTOPRAZOLE 40 MG TAB PO SCH (10:38)
[2020-04-09] MEDS: SACUBITRIL-VALSARTAN 24mg/26mg TAB PO SCH ×2 (10:39→22:48)
[2020-04-09] MEDS: ceFAZolin 1GM/50ML 50 ML IV SCH ×2 (12:08→17:40)
[2020-04-09 13:00] VITALS: BP 114/67
[2020-04-09 17:00] VITALS: BP 97/60
[2020-04-09] MEDS ORDERED: SODIUM CHL 0.9% 1000 ML BAG XX ONE (17:45)
--- NOTE | 2020-04-09 19:15 | NUR ---
CODE ASSIST CALLED BY DIALYSIS NURSE DUE TO PATIENT LOSING CONSCIOUSNESS DURING DIALYSIS. PATIENT FOUND WITH OXYGEN OFF OF FACE. PATIENT OXYGEN SATURATION IN THE MID 80s. FACE MASK APPLIED AND OXYGEN ADMINISTERED AT 15 LPM. PATIENT REGAINED CONSCIOUSNESS AND BLOOD PRESSURE IMPROVED. PATIENT MORE ALERT TO SURROUNDINGS AND RESPONDING TO NAME. PATIENT CARE ENDORSED TO AKUA ARREDONDO.
--- NOTE | 2020-04-09 19:15 | NUR ---
ARRIVED TO CODE ASSIST, PT IS PALE BUT WAKING UP, SPO2 AND BP IMPROVED. PT LEFT ON SM 10L, SAT 94%
--- NOTE | 2020-04-09 19:30 | NUR ---
Opening Shift Note Assumed care of patient, s/p code assist called for nonresponsiveness. patient is easily aroused and sleeping. No S/S of distress/SOB or pain. Instructed on POC and to call for assist PRN, will continue to monitor for changes Q1hr and PRN.
[2020-04-09 20:00] VITALS: BP 107/72
[2020-04-09 22:00] VITALS: BP 107/72
[2020-04-09] MEDS: ATORVASTATIN 20 MG TAB PO SCH (22:48)
[2020-04-09 23:19] LABS: BUN/Creatinine Ratio 10.9; Calcium 8.1 mg/dL (8.5-10.1); Potassium 4.9 mmol/L (3.5-5.1)
[2020-04-10] MEDS: ceFAZolin 1GM/50ML 50 ML IV SCH (01:25)
[2020-04-10] MEDS: HYDROcodone-ACET 5/325MG TAB PO PRN (01:26)
[2020-04-10 05:00] VITALS: BP 114/70
[2020-04-10 05:31] LABS: Basophils # (auto) 0 10 ^3/uL (0-0.2); Basophils % (auto) 0.7 % (0.0-2.0); Eosinophils # (auto) 0.2 10 ^3/uL (0-0.8); Eosinophils % (auto) 3.5 % (0.0-7.0); Hematocrit 32.2 % (41.0-53.0); Hemoglobin 10.5 g/dL (13.5-17.5); Lymphocytes # (auto) 0.3 10 ^3/uL (0.4-5.4); Lymphocytes % (auto) 5.1 % (10.0-50.0); Mean Corpuscular Hemoglobin 28.5 pg (28.0-32.0); Mean Corpuscular Hgb Conc. 32.7 g/dL (32.0-36.0); Mean Corpuscular Volume 87.1 fL (80.0-100.0); Monocytes # (auto) 0.6 10 ^3/uL (0-1.3); Monocytes % (auto) 9.1 % (0.0-12.0); Neutrophils # (auto) 5.6 10 ^3/uL (1.6-8.6); Neutrophils % (auto) 81.6 % (37.0-80.0); Nucleated Red Blood Cells % 0.1 %; Platelet Count (auto) 232 10^3/uL (140-450); Red Cell Distribution Width 17.9 % (11.8-14.3); White Blood Cell 6.8 10^3/uL (4.4-10.8)
[2020-04-10] MEDS: MORPHINE SULF INJ 2 MG/ML SYRINGE 1ML IV PRN ×2 (05:34→10:05)
[2020-04-10] MEDS: ACCU-CHEK COMFORT CURVE STRIP VI SCH (06:23)
[2020-04-10] MEDS: InsuLIN REG 1unit/0.01ml Soln (100units/ml) SC SCH (06:24)
[2020-04-10 09:00] VITALS: BP 113/73
--- NOTE | 2020-04-10 09:03 | NUR ---
dr nuñez called stated to call nephro to ask about dialysis if pt is to recieve today, and clearance for discharge
--- NOTE | 2020-04-10 09:07 | NUR ---
CALLED DR RAMIREZ SPOKE TO EXCHANGE AWAITING CALL BACK
--- NOTE | 2020-04-10 09:36 | NUR ---
PAGED MD RAMIREZ AGAIN AWAITING CALL BACK
--- NOTE | 2020-04-10 09:39 | NUR ---
CALLED DR CRUZ TO REPORT UNABLE TO GET YASMIN RAMIREZ PER MD CRUZ HE GOT YASMIN RAMIREZ PT IS CLEAR FOR DISCHARGE
[2020-04-10] MEDS: AMIODARONE HCL 200 MG TAB PO SCH (10:02)
[2020-04-10] MEDS: CARVEDILOL 3.125 MG TAB PO SCH (10:03)
[2020-04-10] MEDS: SACUBITRIL-VALSARTAN 24mg/26mg TAB PO SCH (10:04)
[2020-04-10] MEDS: CLOPIDOGREL BISULFATE 75 MG TAB PO SCH (10:04)
[2020-04-10] MEDS: PANTOPRAZOLE 40 MG TAB PO SCH (10:04)
--- NOTE | 2020-04-10 10:05 | NUR ---
INFORMED PT OF DISCHARGE ORDER, PT TO CALL HIS FAMILY FOR A RIDE HOME
--- NOTE | 2020-04-10 11:46 | NUR ---
DISCHARGE DOCUMENTATION pt advised to take all medications as prescribed, do not stop taking any medications without talking to your physician. pt advised to make primary appointment himself due to offices not being open on the weekend. pt verbalized understanding of these instructions
[2020-04-10 13:00] VITALS: BP 112/76
--- NOTE | 2020-04-10 13:57 | NUR ---
pt discharged home iv removed tele box sent back to tele room
--- NOTE | 2020-04-10 14:39 | NUR ---
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
== END 2020-04-10 14:00 | disposition home or self-care (01) | DRG 226 ==
LOC: ER 07:12 → EDBD 07:12 → TELE 07:13 → TELE-E-ADS 16:01 → TELE-WESTW 19:30
PROVIDERS: ADMIT Nurse Practitioner Acute Care; ATTEND Internal Medicine
PROC: 0W993ZZ Drainage of Right Pleural Cavity, Percutaneous Approach (ICD-10-PCS; 2020-04-08)
PROC: 0JH608Z Insertion of Defibrillator Generator into Chest Subcutaneous Tissue and Fascia, Open Approach (ICD-10-PCS; principal; 2020-04-09)
PROC: 02HK3KZ Insertion of Defibrillator Lead into Right Ventricle, Percutaneous Approach (ICD-10-PCS; 2020-04-09)
PROC: 02H63KZ Insertion of Defibrillator Lead into Right Atrium, Percutaneous Approach (ICD-10-PCS; 2020-04-09)
PROC: 5A1D70Z Performance of Urinary Filtration, Intermittent, Less than 6 Hours Per Day (ICD-10-PCS; 2020-04-09)
DX: I13.2 Hypertensive heart and chronic kidney disease with heart failure and with stage 5 chronic kidney disease, or end stage renal disease (principal); I50.43 Acute on chronic combined systolic (congestive) and diastolic (congestive) heart failure; N18.6 End stage renal disease; J91.8 Pleural effusion in other conditions classified elsewhere; I25.10 Atherosclerotic heart disease of native coronary artery without angina pectoris; E88.09 Other disorders of plasma-protein metabolism, not elsewhere classified; D63.8 Anemia in other chronic diseases classified elsewhere; E11.65 Type 2 diabetes mellitus with hyperglycemia; E11.22 Type 2 diabetes mellitus with diabetic chronic kidney disease; E78.5 Hyperlipidemia, unspecified; Z20.828 Contact with and (suspected) exposure to other viral communicable diseases; Z79.02 Long term (current) use of antithrombotics/antiplatelets; Z79.4 Long term (current) use of insulin; Z79.01 Long term (current) use of anticoagulants; Z79.899 Other long term (current) drug therapy; Z82.49 Family history of ischemic heart disease and other diseases of the circulatory system; Z82.5 Family history of asthma and other chronic lower respiratory diseases; Z83.3 Family history of diabetes mellitus; Z85.038 Personal history of other malignant neoplasm of large intestine; Z86.711 Personal history of pulmonary embolism; Z86.73 Personal history of transient ischemic attack (TIA), and cerebral infarction without residual deficits; Z95.5 Presence of coronary angioplasty implant and graft; Z99.2 Dependence on renal dialysis; I49.9 Cardiac arrhythmia, unspecified
CPT/HCPCS: 10022; 36415; 71045; 76604; 76942; 80048; 80053; 80076; 81001; 82728; 82962; 83036; 83615; 83880; 84484; 85025; 85610; 85730; 86141; 86850; 86900; 86901; 87070; 87081; 87426; 87804; 87880; 90935; 93005; 93306; 94640; 99152; 99153; G0378; J0690; J1815; J2250; J2405